=== PATIENT | male | born 1955 | race Caucasian/White ===

== ENCOUNTER 2022-10-16 09:29 | Outpatient (OUT) | payer MEDICARE, SELFPAY ==
--- NOTE | 2022-10-16 09:30 | CA_ITS ---
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1955 Requested By: RODNEY FONTAINE Order Number: [id number] Reading MD: RODNEY FONTAINE Interpretive Statements Monophasic doppler waveforms PVR waveforms with delayed upstroke, blunted amplitude and loss of dicrotic notch Right: - significant pressure gradient between the brachial and thigh cuff - abnormal JENELLE Left: - signficant pressure gradient between the brachial and thigh cuff - significant pressure gradient between the calf and DP cuff - abnormal JENELLE Impression: - 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
[2022-10-16 11:00] LABS: Basophils Absolute Auto 0.1 10^3/uL (0.0-0.1); Basophils Percent Auto 0.8 % (0.2-2.0); Eosinophils Absolute Auto 0.1 10^3/uL (0.0-0.7); Hematocrit 44.7 % (42.0-54.0); Hemoglobin 15.4 g/dL (14.0-18.0); Immature Granulocytes Abs Auto 0.03 10^3/uL (0.00-0.03); Immature Granulocytes Pct Auto 0.5 % (0.0-0.5); Lymphocytes Absolute Auto 1.3 10^3/uL (1.2-3.8); Lymphocytes Percent Auto 21.4 % (20.5-60.0); Mean Corpuscular HGB Conc 34.5 g/dL (29.9-35.2); Mean Corpuscular Volume 90.1 fL (80.0-94.0); Mean Platelet Volume 9.1 fL (9.5-13.5); Monocytes Absolute Auto 0.6 10^3/uL (0.3-0.8); Monocytes Percent Auto 9.8 % (1.7-12.0); Neutrophils Absolute Auto 4.2 10^3/uL (1.4-6.5); Neutrophils Percent Auto 66.5 % (43.0-75.0); Platelet Count 264 10^3/uL (150-450); Red Blood Count 4.96 10^6/uL (4.70-6.10); Red Cell Distribution Width 12.7 % (11.0-15.0); White Blood Count 6.3 10^3/uL (4.0-11.0)
[2022-10-16 11:44] LABS: Prostate Specific Antigen Scrn 2.24 ng/mL (<=4.00)
[2022-10-16 11:59] LABS: Alanine Aminotransferase 32 U/L (16-63); Anion Gap 12.2; Calcium 9.5 mg/dL (8.5-10.1); Carbon Dioxide 26.6 mmol/L (21.0-32.0); Chloride 100 mmol/L (98-107); Chol HDL Ratio 1.9; Cholesterol 126 mg/dL (<=200); Estimated GFR (African America >60 (>=60); Estimated GFR (Non-African Ame >60 (>=60); Glucose 99 mg/dL (74-106); HDL Cholesterol 66 mg/dL (40-60); Potassium 4.8 mmol/L (3.5-5.1); Sodium 134 mmol/L (136-145); Triglycerides 102 mg/dL (<=150); VLDL CHOLESTEROL 20.4 mg/dL
== END 2022-10-16 09:30 | disposition home or self-care (01) ==
LOC: CARD 09:29
PROVIDERS: Family Provider Internal Medicine; PCP Internal Medicine; Visit Provider Internal Medicine
DX: Z00.00 Encounter for general adult medical examination without abnormal findings (principal); I70.212 Atherosclerosis of native arteries of extremities with intermittent claudication, left leg; I10 Essential (primary) hypertension; E78.00 Pure hypercholesterolemia, unspecified; Z12.5 Encounter for screening for malignant neoplasm of prostate; Z79.899 Other long term (current) drug therapy
CPT/HCPCS: 36415; 80048; 80061; 84460; 85025; 93923; G0103

== ENCOUNTER 2023-12-07 08:45 | Outpatient (OUT) | payer MEDICARE, SELFPAY ==
[2023-12-07 08:55] LABS: Basophils Percent Auto 0.6 % (0.2-2.0); Eosinophils Absolute Auto 0.1 10^3/uL (0.0-0.7); Hematocrit 43.2 % (42.0-54.0); Hemoglobin 14.3 g/dL (14.0-18.0); Immature Granulocytes Abs Auto 0.02 10^3/uL (0.00-0.03); Immature Granulocytes Pct Auto 0.3 % (0.0-0.5); Lymphocytes Absolute Auto 1.5 10^3/uL (1.2-3.8); Lymphocytes Percent Auto 21.8 % (20.5-60.0); Mean Corpuscular HGB Conc 33.1 g/dL (29.9-35.2); Mean Corpuscular Hemoglobin 29.9 pg (25.9-34.0); Mean Corpuscular Volume 90.4 fL (80.0-94.0); Monocytes Absolute Auto 0.7 10^3/uL (0.3-0.8); Monocytes Percent Auto 10.4 % (1.7-12.0); Neutrophils Absolute Auto 4.3 10^3/uL (1.4-6.5); Neutrophils Percent Auto 64.9 % (43.0-75.0); Platelet Count 285 10^3/uL (150-450); Red Blood Count 4.78 10^6/uL (4.70-6.10); Red Cell Distribution Width 12.6 % (11.0-15.0); White Blood Count 6.6 10^3/uL (4.0-11.0)
[2023-12-07 09:38] LABS: Alanine Aminotransferase 37 U/L (16-63); Albumin Globulin Ratio 1.2; Albumin Level 3.8 g/dL (3.4-5.0); Alkaline Phosphatase 82 U/L (46-116); Anion Gap 10.7; Aspartate Amino Transferase 26 U/L (15-37); Bilirubin Total 1.7 mg/dL (0.2-1.0); Calcium 9.5 mg/dL (8.5-10.1); Carbon Dioxide 27.5 mmol/L (21.0-32.0); Chloride 102 mmol/L (98-107); Chol HDL Ratio 1.6; Cholesterol 124 mg/dL (<=200); Estimated GFR (African America >60 (>=60); Estimated GFR (Non-African Ame >60 (>=60); Globulin 3.1 g/dL; Glucose 101 mg/dL (74-106); HDL Cholesterol 77 mg/dL (40-60); Potassium 4.2 mmol/L (3.5-5.1); Sodium 136 mmol/L (136-145); Total Protein 6.9 g/dL (6.4-8.2); Triglycerides 101 mg/dL (<=150); VLDL CHOLESTEROL 20.2 mg/dL
[2023-12-07 09:54] LABS: Prostate Specific Antigen Scrn 3.01 ng/mL (<=4.00)
== END 2023-12-07 08:46 | disposition home or self-care (01) ==
LOC: LAB 08:45
PROVIDERS: Family Provider Internal Medicine; PCP Internal Medicine; Visit Provider Internal Medicine
DX: E78.00 Pure hypercholesterolemia, unspecified (principal); I10 Essential (primary) hypertension; I73.9 Peripheral vascular disease, unspecified; Z12.5 Encounter for screening for malignant neoplasm of prostate
CPT/HCPCS: 36415; 80053; 80061; 85025; G0103

== ENCOUNTER 2024-12-20 08:43 | Outpatient (OUT) | payer MEDICARE, SELFPAY ==
--- OUTSIDE RECORDS SUMMARY | 2024-12-20 09:03 | XMS_ITS | CCD ---
Author Organization [facility] CliniSyvt Care Team Providers Care Convertible Sofa Bedspring Tester Name Role Phone DR MARK ENRIQUEZ Admitting Unavailable MINA, DR STEVENS Attending Unavailable MINA, DR STEVENS Consulting Unavailable Mark Enriquez Unavailable Temi Vazquez Unavailable ERLIN Vazquez Attending Provider DO Mark Enriquez Primary Care Provider [phone] Dusty Black Unavailable Sridevi Cochran Unavailable Mark Enriquez DO Primary Care Provider [phone] Mark Enriquez DO Attending Provider Julius Cullen MD Attending Provider Julius Cullen MD Other Provider [phone] Julius Cullen Admitting Unavailable Julius Cullen Attending Unavailable Mark Enriquez Primary Care Unavailable Mark Enriquez Primary Care Unavailable Temi Vazquez Admitting Unavailable Temi Vazquez Attending Unavailable Medications Current Medications Medication Drug Class(es) Dates Sig (Normalized) Sig (Original) aspirin 81 mg delayed release oral tablet (11 sources) Platelet Aggregation Inhibitor, Nonsteroidal Anti-inflammatory Drug Start: 08-31-2023 take 1 tablet by mouth once daily Aspirin 81 mg tablet,delayed release (/EC) Active 1 TAB PO Daily August 31, 2023 12:00am FreeTextSi tablet Orally Once a day; Note: Source Status: Continue; Provider: Mina Reddy Complies with drug therapy take 1 tablet by tori th every twenty-four hours Aspirin 81 81 MG 1 tablet Orally Once a day Active take 1 tablet by mouth once shanti y Aspirin 81 81 MG 1 tablet Orally Once a day Active 24 hr buPROPion hydrochloride 150 mg extended release oral tablet (3 sources) Aminoketone Start: 01-15-2023 take 1 tablet by mouth every twenty-four hours buPROPion HCl ER (XL) 150 MG 1 tablet in the morning Orally Once a day for 30 days Jan, Active cephalexin 500 mg oral tablet (3 sources) Cephalosporin Antibacterial Start: 01-15-2023 take 1 tablet by mouth every eight hours Cephalexin 500 MG 1 tablet Orally Three times a day for 7 days Jan, Active clopidogrel 75 mg oral tablet (13 sources) P2Y12 Platelet Inhibitor Start: 03-01-2024 take 1 tablet by mouth once daily Clopidogrel 75 mg tablet Active 0 .ROUTE .COMPLEX March 01, 2024 2:12pm Take 1 tablet by mouth once daily Complies with drug therapy Start: 08-31-2023 End: 03-01-2024 take 1 tablet by mouth once daily Clopidogrel 75 mg tablet Discontinued 1 TAB PO Daily August 31, 2023 12:00am March 01, 2024 2:12pm FreeTextSi tablet Orally Once a day; Note: Source Status: Refill; Refills: 3; Qty: 90 Tablet; Provider: Mina Reddy take 1 tablet by tori th every twenty-four hours Clopidogrel Bisulfate 75 MG 1 tablet Orally Once a day for 90 days Active lisinopril 20 mg oral tablet (20 sources) Angiotensin Converting Enzyme Inhibitor Start: 10-02-2024 take 1 tablet by mouth once daily Lisinopril 20 mg tablet Active 20 MG PO Daily October 02, 2024 1:59pm Complies with drug therapy Start: 09-22-2023 End: 10-02-2024 take 1 tablet by mouth once daily Lisinopril 20 mg tablet Discontinued 0 .ROUTE .COMPLEX September 22, 2023 9:11am October 02, 2024 2:00pm Take 1 tablet by mouth once daily for 90 days Start: 08-31-2023 End: 09-22-2023 take 1 tablet by mouth once daily Lisinopril 20 mg tablet Discontinued 1 TAB PO Daily August 31, 2023 12:00am September 22, 2023 9:12am FreeTextSi tablet Orally Once a day; Note: Source Status: Continue; Provider: Mina Reddy take 1 tablet by tori th every twenty-four hours Lisinopril 20 MG 1 tablet Orally Once a day Active mupirocin 0.02 mg/mg topical ointment (3 sources) RNA Synthetase Inhibitor Antibacterial Start: 01-15-2023 Mupirocin 2 % 1 application Externally Twice a day for 5 days Jan, Active Completed/Discontinued Medications Medication Drug Class(es) Dates Sig (Normalized) Sig (Original) atorvastatin 20 mg oral tablet (20 sources) HMG-CoA Reductase Inhibitor Start: 08-31-2023 End: 10-23-2024 take 1 tablet by mouth once daily Atorvastatin 20 mg tablet Discontinued 20 MG PO Daily 90 90 October 02, 2024 1:59pm October 23, 2024 8:28am take 1 tablet by tori th every twenty-four hours Atorvastatin Calcium 20 MG 1 tablet Oral ly Once a day Active Sod Picosulf-Mag Ox-Citric A c (4 sources) Start: 10-24-2024 End: 10-24-2024 Sod Picosulf-Mag Ox-Citric A c (Clenpiq) 10 mg-3.5 gram- 12 gram/175 mL solution Discontinued 175 ML PO .COMPLEX 350 October 24, 2024 7:58am October 24, 2024 12:12pm Follow instructions given by office Start: 10-12-2024 End: 10-24-2024 Sod Picosulf-Mag Ox-Citric A c (Clenpiq) 10 mg-3.5 gram- 12 gram/175 mL solution Discontinued 175 ML PO .COMPLEX 350 October 12, 2024 12:00am October 24, 2024 7:58am Follow instructions given by office Problems Problem Classification Problem Date Documented Date Episodic/Chronic Aortic and peripheral arterial embolism or thrombosis (3 sources) Iliac artery occlusion; 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 Disorders of lipid metabolism (20 sources) Pure hypercholesterolemia; Translations: [Pure hypercholesterolemia, unspecified] Chronic Essential hypertension (20 sources) Essential hypertension; Translations: [Essential (primary) hypertension] Chronic Genitourinary symptoms and ill-defined conditions (16 sources) Nocturia; Translations: [Nocturia] Episodic Hyperplasia of prostate (20 sources) Nocturia due to benign prostatic hypertrophy; Translations: [Benign prostatic hyperplasia with lower urinary tract symptoms] Chronic Other aftercare (1 source) Other residential (current) drug therapy Episodic Other screening for suspected conditions (not mental disorders or infectious disease) (9 sources) Encounter for screening for malignant neoplasm of prostate; Translations: [Patient encounter status] Onset: 02-16-2022 Episodic Comment on above: PSA: 1.47 - 10/2020, 2.33 - 02/2022, 2.24 - 10/2022, 3.01 - 11/2023 Other skin disorders (1 source) Ingrowing nail Episodic Otitis media and related conditions (2 sources) Dysfunction of eustachian tube; Translations: [Unspecified Eustachian tube disorder, unspecified ear] Episodic Peripheral and visceral atherosclerosis (20 sources) Atherosclerosis of [place] arteries of extremities with intermittent claudication, left leg; Translations: [Intermittent claudication of bilateral lower limbs co-occurrent and due to atherosclerosis] Onset: 03-28-2024 Chronic Comment on above: CTA: occluded left c ommon femoral artery w/ collateral flow, 70% stenosis right common femoral arteryABI: right 0.75, left 0.88 - BI: right 1.34, left 1.0 - 03/2024 Screening and history of mental health and substance abuse codes (2 sources) Ex-smoker; Translations: [Personal history of nicotine dependence] 08-31-2023 Episodic Skin and subcutaneous tissue infections (1 source) Cellulitis of left toe Episodic Substance-related disorders (20 sources) Nicotine dependence; Translations: [Nicotine dependence, cigarettes, uncomplicated] Chronic Comment on above: Age started 20, 1ppd , age quit 67 Unclassified (4 sources) Patient encounter status; Translations: [Z12.11 - Encounter for screening for malignant neoplasm of colon] Unclassified (1 source) H69.90 - Unspecified Eustachian tube disorder, unspecified ear Results Test Name Value Interpretation Reference Range Facil ity US ankle/arm indiceson 03-29 US ankle/arm indices [facility] [address] [place] [address] Ultrasound Report Signed Patient: Ozzy Laguna MR#: [id number] 58 : 1955 Acct:[id number] Age/Sex: 68 / M ADM Date: 03/28/24 Loc: [facility] Room: Type: [facility] Attending Dr: Temi Vazquez SHIPPING/RECEIVING MANAGER-C Ordering Provider: Temi Vazquez APRN Date of Service: 03/28/24 US/US ankle/arm indices: I73.9 - Peripheral vascular disease, unspecified Copies to: Temi Vazquez APRN LOWER EXTREMITY SEGMENTAL ARTERIAL DOPSCAN (PVR) INDICATION: PVD PROCEDURE: Right arm blood pressure is 117 , left is 106 . Pressures of the right leg are 157 at the ankle using the posterior tibial artery and 154 at the ankle using the dorsalis pedis artery with ankle-brachial index of 1.32 1.34 . Pressures of the left leg are 90 at the ankle using the posterior tibial artery and 117 at the ankle using the dorsalis pedis artery with ankle-brachial index of 1.00 0.77 . Wave forms by plethysmography are biphasic in the right lower extremity. US/US ankle/arm indices IMPRESSION: Mild to moderate PERIPHERAL ARTERIAL DISEASE OF THE RIGHT LOWER EXTREMITY AT REST. THE PATIENT IS MOST LIKELY TO HAVE MULTI LEVEL DISEASE OF THE RIGHT LOWER EXTREMITY. Impression dictated by: Juan Dupont MD03/29/2024 4:56 PM Dictation Location: [facility]- Tech: Mikaela Lorenzo Transcribed By: YADI 03/29/241655 Dictated By: Juan Dupont MD 03/29/241654 Signed By: 03/29/241655 Normal [facility] Creatinine (Bld) [Mass/Vol]O rdered By: Temi Vazquez on 11-17-2022 Creatinine [Mass/Vol] 0.9 mg/dL 0.6-1.3 [facility] Comment on above: ER/ESD physician is notified/shown all ISTAT results.Critical values may be confirmed by laboratory testing ifdeemed necessary by ER attending doctor. CBC AUTO DIFFon 02-11-2022 BASO # 0.0 103/ul Normal 0.0-0.1 [facility] Comment on above: Performed By: #### C BC #### [facility] [address] [address] [address] Nirmala Weldon Basophils/100 WBC (Bld) 0.5 % Normal 0.2-2.0 [facility] Comment on above: Performed By: #### C BC #### [facility] [address] [address] [address] Nirmala Weldon EO # 0.1 103/ul Normal 0.0-0.[address] [facility] Comment on above: Performed By: #### C BC #### [facility] [address] [place] [address] Dr. Nirmala Weldon Eosinophils/100 WBC (Bld) 1.4 % Normal 0.9-7.[address] [facility] Comment on above: Performed By: #### C BC #### [facility] [address] [place] [address] Dr. Nirmala Weldon Erythrocyte distribution width (RBC) [Ratio] 12.6 % Normal 11.0-15.0 [facility] Comment on above: Performed By: #### C BC #### [facility] [address] [place] [address] Dr. Nirmala Weldon Hematocrit (Bld) [Volume fraction] 47.8 % Normal 42.0-54.0 [facility] Comment on above: Performed By: #### C BC #### [facility] [address] [place] [address] Dr. Nirmala Weldon Hemoglobin (Bld) [Mass/Vol] 16.4 g/dL Normal 14.0-18.0 [facility] Comment on above: Performed By: #### C BC #### [facility] [address] [place] [address] Dr. Nirmala Weldon IG # 0.05 10e3/ul Critically high 0.00-0.03 [facility] Comment on above: Performed By: #### C BC #### [facility] [address] [place] [address] Dr. Nirmala Weldon IG % 0.6 % Critically high 0.0-0.5 [facility] Comment on above: Performed By: #### C BC #### [facility] [address] [place] [address] Dr. Nirmala Weldon LYMPH # 1.7 103/ul Normal 1.2-3.[address] [facility] Comment on above: Performed By: #### C BC #### [facility] [address] [place] [address] Dr. Nirmala Weldon Lymphocytes/100 WBC (Bld) 20.8 % Normal 20.5-60.[address] [facility] Comment on above: Performed By: #### C BC #### [facility] [address] [place] [address] Dr. Nirmala Weldon MANUAL DIFF REQ NO Normal [facility] Comment on above: Performed By: #### C BC #### [facility] [address] [place] [address] Dr. Nirmala Weldon MCH (RBC) [Entitic mass] 30.5 pg Normal 25.9-34.[address] [facility] Comment on above: Performed By: #### C BC #### [facility] [address] [place] [address] Dr. Nirmala Weldon MCHC (RBC) [Mass/Vol] 34.3 g/dL Normal 29.9-35.[address] [facility] Comment on above: Performed By: #### C BC #### [facility] [address] [place] [address] Dr. Nimrala Weldon MCV (RBC) [Entitic vol] 88.8 fL Normal 80.0-94.[address] [facility] Comment on above: Performed By: #### C BC #### [facility] [address] [place] [address] Dr. Nirmala Weldon MONO # 0.7 103/ul Normal 0.3-0.[address] [facility] Comment on above: Performed By: #### C BC #### [facility] [address] [place] [address] Dr. Nirmala Weldon Monocytes/100 WBC (Bld) 8.9 % Normal 1.7-12.[address] [facility] Comment on above: Performed By: #### C BC #### [facility] [address] [place] [address] Dr. Nirmala Weldon NEUT # 5.6 103/ul Normal 1.4-6.[address] [facility] Comment on above: Performed By: #### C BC #### [facility] [address] [place] [address] Dr. Nirmala Weldon Neutrophils/100 WBC (Bld) 67.8 % Normal 43.0-75.[address] [facility] Comment on above: Performed By: #### C BC #### [facility] [address] [place] [address] Dr. Nirmala Weldon Platelet mean volume (Bld) [Entitic vol] 8.9 fL Critically low 9.5-13.[address] [facility] Comment on above: Performed By: #### C BC #### [facility] [address] [place] [address] Dr. Nirmala Weldon PLT 255 103/ul Normal 150-[address] [facility] Comment on above: Performed By: #### C BC #### [facility] [address] [place] [address] Dr. Nirmala Weldon RBC 5.38 106/ul Normal 4.70-6.[address] [facility] Comment on above: Performed By: #### C BC #### [facility] [address] [place] [address] Dr. Nirmala Weldon WBC 8.3 103/ul Normal 4.0-11.[address] [facility] Comment on above: Performed By: #### C BC #### [facility] [address] [place] [address] Dr. Nirmala Weldon LIPID PROFILEon 02-11-2022 CHOL-HDL RATIO NORM SEE BELOW Normal [facility] Comment on above: Result Comment: 3.3 - 4.4 LOW RISK 4.4 - 7.1 AVERAGE RISK 7.1 - 11.0 MODERATE RISK >11.0 HIGH RISK Performed By: #### L IPID, CMP #### [facility] [address] [place] [address] Dr. Nirmala Weldon Cholesterol [Mass/Vol] 133 mg/dL Normal <=[address] [facility] Comment on above: Performed By: #### L IPID, CMP #### [facility] [address] [place] [address] Dr. Nirmala Weldon Cholesterol in HDL [Mass/Vol] 68 mg/dL Critically high 40-[address] [facility] Comment on above: Performed By: #### L IPID, CMP #### [facility] [address] [address] [address] Nirmala Weldon Cholesterol in LDL [Mass/Vol] 45.8 mg/dL Normal [facility] Comment on above: Performed By: #### L IPID, CMP #### [facility] [address] [address] [address] Nirmala Weldon Cholesterol.total/ Cholesterol in HDL [Mass ratio] 2.0 {ratio} Normal [facility] Comment on above: Performed By: #### L IPID, CMP #### [facility] [address] [address] [address] Nirmala Weldon HDL NORMAL > or = 60 mg/dl - LO W CARDIOVASCULAR RISK <40 mg/dl - HIGH CARDIOVASCULAR RISK Normal [facility] Comment on above: Performed By: #### L IPID, CMP #### [facility] [address] [address] [address] Nirmala Weldon LDL CALC NORMAL SEE BELOW Normal [facility] Comment on above: Result Comment: <100 mg/dl OPTIMAL 100 - 129 mg/dl NEAR OR ABOVE OPTIMAL 130 - 159 mg/dl BORDERLINE HIGH 160 - 189 mg/dl HIGH >190 mg/dl VERY HIGH Performed By: #### L IPID, CMP #### [facility] [address] [address] [address] Nirmala Weldon Triglyceride [Mass/Vol] 96 mg/dL Normal <=150 [facility] Comment on above: Performed By: #### L IPID, CMP #### [facility] [address] [address] [address] Nirmala Weldon VLDL CALC 19.2 mg/dL Normal [facility] Comment on above: Performed By: #### L IPID, CMP #### [facility] [address] [address] [address] Nirmala Weldon PROF 14(COMP METB)on 022 Albumin [Mass/Vol] 4.0 g/dL Normal 3.4-5.0 [facility] Comment on above: Performed By: #### L IPID, CMP #### [facility] [address] [address] [address] Nirmala Weldon Albumin/Globulin [Mass ratio] 1.2 {ratio} Normal [facility] Comment on above: Performed By: #### L IPID, CMP #### [facility] [address] [address] [address] Nirmala Weldon ALP [Catalytic activity/Vol] 95 U/L Normal 46-116 [facility] Comment on above: Performed By: #### L IPID, CMP #### [facility] [address] [address] [address] Nirmala Weldon ALT [Catalytic activity/Vol] 29 U/L Normal 16-63 [facility] Comment on above: Performed By: #### L IPID, CMP #### [facility] [address] [address] [address] Nirmala Weldon Anion gap [Moles/Vol] 10.8 mmol/L Normal [facility] Comment on above: Performed By: #### L IPID, CMP #### [facility] [address] [address] [address] Nirmala Weldon AST [Catalytic activity/Vol] 18 U/L Normal 15-37 [facility] Comment on above: Performed By: #### L IPID, CMP #### [facility] [address] [address] [address] Nirmala Weldon Bilirubin [Mass/Vol] 1.4 mg/dL Critically high 0.2-1.0 [facility] Comment on above: Performed By: #### L IPID, CMP #### [facility] [address] [address] [address] Nirmala Weldon Calcium [Mass/Vol] 9.5 mg/dL Normal 8.5-10.1 [facility] Comment on above: Performed By: #### L IPID, CMP #### [facility] [address] [address] [address] Nirmala Weldon Chloride [Moles/Vol] 99 mmol/L Normal 98-107 [facility] Comment on above: Performed By: #### L IPID, CMP #### [facility] [address] [address] [address] Nirmala Weldon CO2 [Moles/Vol] 27.8 mmol/L Normal 21.0-32.0 [facility] Comment on above: Performed By: #### L IPID, CMP #### [facility] [address] [address] [address] Nirmala Weldon Creatinine [Mass/Vol] 0.99 mg/dL Normal 0.70-1.[address] [facility] Comment on above: Performed By: #### L IPID, CMP #### [facility] [address] [address] [address] Nirmala Weldon EGFR-AF PRYDEINIG >60 Normal >=60 [facility] Comment on above: Performed By: #### L IPID, CMP #### [facility] [address] [address] [address] Nirmala Weldon EGFR-NON AF PRYDEINIG >60 Normal >=[address] [facility] Comment on above: Performed By: #### L IPID, CMP #### [facility] [address] [address] [address] Nirmala Weldon Globulin (S) [Mass/Vol] 3.3 g/dL Normal [facility] Comment on above: Performed By: #### L IPID, CMP #### [facility] [address] [address] [address] Nirmala Weldon Glucose [Mass/Vol] 103 mg/dL Normal 74-106 [facility] Comment on above: Performed By: #### L IPID, CMP #### [facility] [address] [address] [address] Nirmala Weldon Potassium [Moles/Vol] 4.6 mmol/L Normal 3.5-5.[address] [facility] Comment on above: Performed By: #### L IPID, CMP #### [facility] [address] [address] [address] Nirmala Weldon Protein [Mass/Vol] 7.3 g/dL Normal 6.4-8.2 [facility] Comment on above: Performed By: #### L IPID, CMP #### [facility] [address] [address] [address] Nirmala Weldon Sodium [Moles/Vol] 133 mmol/L Critically low 136-[address] [facility] Comment on above: Performed By: #### L IPID, CMP #### [facility] [address] [address] [address] Nirmala Weldon Urea nitrogen [Mass/Vol] 9.0 mg/dL Normal 7.0-18.0 [facility] Comment on above: Performed By: #### L IPID, CMP #### [facility] [address] [address] [address] Nirmala Weldon Urea nitrogen/Creatinin e [Mass ratio] 9.1 mg/mg Normal [facility] Comment on above: Performed By: #### L IPID, CMP #### [facility] [address] [address] [address] Nirmala Weldon Vital Signs Date Time Vital Sign Value Performing Clinician Facility 11-06-2024 08:50-0400 Diastolic blood pressure 54 mm[Hg] Mark Ball DO Work Phone: [facility] 11-06-2024 08:50-0400 Heart rate 65 /min Mark Ball DO Work Phone: [facility] 11-06-2024 08:50-0400 Respiratory rate 16 /min Mark Ball DO Work Phone: [facility] 11-06-2024 08:50-0400 SaO2% (BldA) [Mass fraction] 98 % Mark Ball DO Work Phone: [facility] 11-06-2024 08:50-0400 Systolic blood pressure 90 mm[Hg] Mark Ball DO Work Phone: [facility] 11-06-2024 07:42-0400 Body height 170.18 cm Mark Ball DO Work Phone: [facility] 11-06-2024 07:42-0400 Body weight 74.84 kg Mark Ball DO Work Phone: [facility] 10-02-2024 13:36-0400 Body height 170.18 cm Mark Ball DO Work Phone: [facility] 10-02-2024 13:36-0400 Body mass index (BMI) [Ratio] 26.2 kg/m2 Mark Ball DO Work Phone: [facility] 10-02-2024 13:36-0400 Body weight 75.74 kg Mark Ball DO Work Phone: [facility] 10-02-2024 13:36-0400 Diastolic blood pressure 70 mm[Hg] Mark Ball DO Work Phone: [facility] 10-02-2024 13:36-0400 Heart rate 64 /min Mark Ball DO Work Phone: [facility] 10-02-2024 13:36-0400 Respiratory rate 12 /min Mark Ball DO Work Phone: [facility] 10-02-2024 13:36-0400 Systolic blood pressure 126 mm[Hg] Mark Ball DO Work Phone: [facility] 08-31-2023 13:36-0400 Body height 170.18 cm [facility] 08-31-2023 13:36-0400 Body mass index (BMI) [Ratio] 25.5 kg/m2 [facility] 08-31-2023 13:36-0400 Body temperature 97.6 [degF] [facility] 08-31-2023 13:36-0400 Body weight 73.93 kg [facility] 08-31-2023 13:36-0400 Diastolic blood pressure 62 mm[Hg] [facility] 08-31-2023 13:36-0400 Heart rate 71 /min [facility] 08-31-2023 13:36-0400 Respiratory rate 16 /min [facility] 08-31-2023 13:36-0400 SaO2% (BldA) [Mass fraction] 95 % [facility] 08-31-2023 13:36-0400 Systolic blood pressure 106 mm[Hg] [facility] 03-30-2023 13:30-0500 Body height 170.18 cm Mark Ball Other [facility] Other 03-30-2023 13:30-0500 Body mass index (BMI) [Ratio] 25.68 kg/m2 Mark Ball Other [facility] Other 03-30-2023 13:30-0500 Body weight 74.39 kg Mark Ball Other [facility] Other 03-30-2023 13:30-0500 Diastolic blood pressure 77 mm[Hg] Mark Ball Other [facility] Other 03-30-2023 13:30-0500 Respiratory rate 12 /min Mark Ball Other [facility] Other 03-30-2023 13:30-0500 Systolic blood pressure 127 mm[Hg] Mark Ball Other [facility] Other 01-15-2023 11:15-0400 Body height 170.18 cm Sridevi Cochran Other [facility] Other 01-15-2023 11:15-0400 Body mass index (BMI) [Ratio] 24.43 kg/m2 Sridevi Cochran Other [facility] Other 01-15-2023 11:15-0400 Body weight 70.76 kg Sridevi Cochran Other [facility] Other 01-15-2023 11:15-0400 Diastolic blood pressure 80 mm[Hg] Sridevi Cochran Other [facility] Other 01-15-2023 11:15-0400 SaO2% (BldA) [Mass fraction] 98 % Sridevi Cochran Other [facility] Other 01-15-2023 11:15-0400 Systolic blood pressure 136 mm[Hg] Sridevi Cochran Other [facility] Other 11-24-2022 12:15-0400 Body height 170.18 cm Dusty Bryantrer Other [facility] Other 11-24-2022 12:15-0400 Body mass index (BMI) [Ratio] 24.27 kg/m2 Dusty Mcdonaldehrer Other [facility] Other 11-24-2022 12:15-0400 Body temperature 97.6 [degF] Dusty Bryantrer Other [facility] Other 11-24-2022 12:15-0400 Body weight 70.31 kg Dusty Tamaraehrer Other [facility] Other 11-24-2022 12:15-0400 Diastolic blood pressure 62 mm[Hg] Dusty Mcdonaldehrer Other [facility] Other 11-24-2022 12:15-0400 SaO2% (BldA) [Mass fraction] 96 % Dusty Buehrer Other [facility] Other 11-24-2022 12:15-0400 Systolic blood pressure 110 mm[Hg] Dusty Buehrer Other [facility] Other 11-04-2022 08:30-0400 Body height 170.18 cm Temi Vazquez Other [facility] Other 11-04-2022 08:30-0400 Body mass index (BMI) [Ratio] 24.27 kg/m2 Temi Vazquez Other [facility] Other 11-04-2022 08:30-0400 Body temperature 97.8 [degF] Temi Vazquez Other [facility] Other 11-04-2022 08:30-0400 Body weight 70.31 kg Temi Vazquez Other [facility] Other 11-04-2022 08:30-0400 Diastolic blood pressure 78 mm[Hg] Temi Vazquez Other [facility] Other 11-04-2022 08:30-0400 SaO2% (BldA) [Mass fraction] 97 % Temi Vazquez Other [facility] Other 11-04-2022 08:30-0400 Systolic blood pressure 116 mm[Hg] Temi Vazquez Other [facility] Other 09-28-2022 13:30-0400 Body height 170.18 cm Mark Ball Other [facility] Other 09-28-2022 13:30-0400 Body mass index (BMI) [Ratio] 24.31 kg/m2 Mark Ball Other [facility] Other 09-28-2022 13:30-0400 Body weight 70.4 kg Mark Ball Other [facility] Other 09-28-2022 13:30-0400 Diastolic blood pressure 69 mm[Hg] Mark Ball Other [facility] Other 09-28-2022 13:30-0400 Respiratory rate 12 /min Mark Enriquez Other [facility] Other 09-28-2022 13:30-0400 Systolic blood pressure 130 mm[Hg] Mark Enriquez Other [facility] Other Encounters Encounter Date Encounter Type Care Provider Facility Start: 11-08-2024 ambulatory Mark Enriquez DO Work Phone: [facility] Work Phone: Start: 11-08-2024 Non-patient / Non-visit Mark Burkett mercy [facility] Work Phone: Start: 11-06-2024 End: 11-06-2024 ambulatory Julius Cullen Facility:[facility] Start: 11-06-2024 Non-patient / Non-visit Julius Martinez MD -[facility] Work Phone: Start: 10-02-2024 End: 10-02-2024 Patient encounter procedure Mark Enriquez DO -[facility] Work Phone: Start: 03-28-2024 End: 03-28-2024 ambulatory Mark Enriquez Facility:[facility] Start: 08-31-2023 End: 08-31-2023 ambulatory [facility] Work Phone: Start: 08-31-2023 End: 08-31-2023 Patient encounter procedure [facility] Work Phone: Start: 03-30-2023 End: 03-30-2023 ambulatory Mark Enriquez Other [facility] Other Start: 03-30-2023 Office outpatient vi sit 25 minutes Mark Enriquez [facility] Start: 03-02-2023 End: 03-02-2023 ambulatory Dusty Black Other [facility] Other Start: 03-02-2023 Office outpatient vi sit 25 minutes Dusty Black [facility] V[facility] Surgery Start: 01-15-2023 End: 01-15-2023 ambulatory Mark Enriquez Other [facility] Other Start: 01-15-2023 Office outpatient vi sit 15 minutes Sridevi Cochran [facility] Start: 01-15-2023 Telephone encounter Mark Enriquez [facility] Start: 11-24-2022 End: 11-24-2022 ambulatory Dusty Black Other [facility] Other Start: 11-24-2022 Office outpatient vi sit 25 minutes Dusty Black [facility] Vascular Surgery Start: 11-17-2022 End: 11-17-2022 ambulatory DO Mark Enriquez Work Phone: [facility] Work Phone: Start: 11-17-2022 End: 11-17-2022 Patient encounter procedure DO Mark Enriquez Work Phone: [facility] [place] Work Phone: Start: 11-05-2022 End: 11-05-2022 ambulatory Temi Vazquez Other [facility] Other Start: 11-05-2022 Telephone encounter Temi Lloyd [employer] Start: 11-04-2022 End: 11-04-2022 ambulatory Temi Vazquez Other [facility] Other Start: 11-04-2022 [facility] visit new patient Temi treadwell [facility] V[facility] Surgery Start: 10-17-2022 End: 10-17-2022 ambulatory Mark Enriquez Other [facility] Other Start: 10-17-2022 Encounter by yaritza steinberg Mark Enriquez [facility] Start: 10-16-2022 End: 10-16-2022 ambulatory Mark Enriquez Other [facility] Other Start: 10-16-2022 Telephone encounter Mark CHRISTENSEN [facility] Start: 10-01-2022 End: 10-01-2022 ambulatory Mark Enriquez Other [facility] Other Start: 10-01-2022 Encounter by yaritza r idris Enriquez [facility] Start: 09-28-2022 End: 09-28-2022 ambulatory Mark Enriquez Other [facility] Other Start: 09-28-2022 Initial preventive exam Mark madrid [facility] Start: 09-28-2022 Patient encounter procedure Mark Enriquez [facility] Start: 09-28-2022 Telephone encounter Mark Enriquez [facility] Start: 02-16-2022 Encounter for genera l adult medical examination without abnormal findings DR MARK ENRIQUEZ [facility] Start: 02-11-2022 End: 02-12-[address] MARK ENRIQUEZ Facility:[facility] Start: 02-11-2022 End: 02-12-2022 Encounter for general adult medical examination without abnormal findings DR MARK ENRIQUEZ Facility:[facility] Start: 09-15-2021 Adult health examination Temi Vazquez Other [facility] Other Procedures Date Procedure Procedure Detail Performing Clinician Start: 11-17-2022 CT of abdominal aort a with contrast DO Mark Enriquez Work Phone: Start: 02-11-[address] SADIE ENRIQUEZ Comment on above: Performed By: #### P [facility] #### [facility] [address] [place] [address] Dr. Nirmala Weldon Depression screening Temi Vazquez Other Plan of Treatment Date Care Activity Detail Author Start: 11-08-[address] [facility] Work Phone: Start: 11-06-2024 [facility] Start: 10-02-2024 Patient referral [facility] Work Phone: Comprehensive metabo lic 2000 panel - Serum or Plasma [facility] Patient Education High-fiber t [facility] Diverticulosis Discharge Instructions [facility] Hemorrhoids Discharge Instructions Know your Meds [facility] Work Phone: Patient referral [facility] Work Phone: [facility] Immunizations Immunization Date Immunization Notes Care Provider Usman anderson 03-20-2024 influenza, high dose seasonal, preservative-free Mark Ball DO Work Phone: [facility] 03-30-2023 influenza, high dose seasonal, preservative-free Mark Ball Other [facility] Other 03-30-2023 Prevnar 20 Mark Ball Other [facility] 03-30-2023 influenza virus vaccine, unspecified formulation [facility] 07-12-2020 COVID-19 Vaccine Pfi zer - Documentation Purposes Only Mark Ball Other [facility] 06-21-2020 COVID-19 Vaccine Pfi zer - Documentation Purposes Only Mark Ball Other [facility] 03-13-2020 Seasonal, quadrivale nt, recombinant, injectable influenza vaccine, preservative free Mark Ball Other [facility] 02-28-2019 Influenza, injectabl e, Madin Liliana Canine Kidney, quadrivalent with preservative Mark Ball Other [facility] Other 02-28-2019 Influenza, injectabl e, Madin [place] Canine Kidney, preservative free, quadrivalent [facility] 02-25-2018 influenza, injectabl e, quadrivalent, preservative free Mark Ball Other [facility] Payers Date Payer Category Payer Self-pay [id number] 2023 [facility] [id number] 1955 Unknown [id number] Unknown [id number] Unknown [id number] Unknown [id number] Social History Date Type Detail Facility Sex Assigned At [facility] Other Start: 1955 Sex Assigned At Male F [facility] Start: 08-31-2023 End: 11-06-2024 Tobacco smoking status NHIS Ex-smoker (finding) [facility] Sex Male (finding) [facility] Clinical Notes 09-28-2022 to 11-08-2024 Note Date & Type Note Facility 11-08-2024 Hospital Discharg e instructions Ambulatory OrdersReferral to ENT Time Frame: 11/08/24, Location: None Selected [facility] Work Phone: 10-02-2024 Evaluation note Diagnosis Onset Date Resolution Cigarette nicotine dependence in remission acute September 1:30pm Encounter for screening for malignant neoplasm of prostate acute October 02, 2024 1:30pm Hypercholesterolemia acute October 02, 2024 1:30pm Hypertension acute October 02, 025 1:30pm PAD (peripheral artery disease) acute October 02, 2024 1:30pm Medicare annual wellness visit, initial noneactive October 02, 2024 1:30pm Screening for colon cancer noneactiv e October 02, 2024 1:30pm [facility] Work Phone: [phone] 975-303312-19-2023 Evaluation note* Encounter Date Diagnosis Assessment Notes Treatment Notes Treatment Clinical Notes Mar, Pure hypercholestero lemia (ICD-10 - E78.00) Instructed on diet and exercise with continued statin therapy.Discussed the beneficial effects of lowering cholesterol in reducing the risk for cerebrovascular and cardiovascular disease. Mar, Primary hypertension (ICD-10 - I10) This patient is instructed to consume a healthy, low-fat, low-salt diet. They are also encouraged to continue exercise to achieve/maintain a normal BMI. Mar, Atherosclerosis of n ative artery of left lower extremity with intermittent claudication (ICD-10 - I70.212) Inspect feet daily for cuts. Walk daily until develop pain, rest and restart. Continue primary prevention measures: ASA, Plavix, Statin therapy. Continue abstinence from tobacco products Notify office w/ any change in symptoms or appearance of feet Mar, Benign prostatic hyperplasia with lower urinary tract symptoms (ICD-10 - N40.1) Symptoms tolerable Yearly ALCON and PSA Mar, Nocturia (ICD-10 - R35.1) Mar, Cigarette nicotine dependence in remission (ICD-10 - F17.211) Age began 20 1ppd, quit 2022 Continue abstinence. d/c Wellbutrin and call if desire to restart. They are aware of the hazards associated with tobacco use, including but not limited to respiratory infections, vascular disease and cancers. 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 He has a left external iliac artery occlusion with good-quality extensive collateralization between the internal iliac artery and the profunda femoris. He does not have ischemic rest pain or ulceration at this time although he did have a subungual infection by his history. For now we will continue to follow him. The fact that he has quit smoking is quite favorable for his overall prognosis. I will see him back in 6 months and we will repeat his ABIs on that day. He is aware that should he deteriorate in any way he could come back sooner and I be happy to see him. Particularly I emphasized to him that if he gets a sore on his foot we should see him immediately. [facility] Other 10-06-2023 Evaluation note* Encounter Date Diagnosis Assessment Notes Treatment Notes Treatment Clinical Notes Jan, Cigarette nicotine dependence without complication (ICD-10 - F17.210) [facility] Other 10-06-2023 Evaluation note* Encounter Date Diagnosis Assessment Notes Treatment Notes Treatment Clinical Notes Jan, Cellulitis of toe of left foot (ICD-10 - L03.032) Take medication as directed. Complete full course of antibiotic, even if symptoms are no longer present. Advised patient to keep area clean and dry. Clean feet with warm soapy water. Soak feet in warm water twice a day for 15 minutes each time. After soaking, dry feet well and apply a thin layer of Mupuricin. Cover area with bandage if potential exposure to dirty environment. May use OTC ibuprofen/tylenol as needed for pain. Do not cut toenails too short and avoid wearing shoes that are too tight. Patient encouraged to follow up with podiatry for recurrent ingrown toenails, the area does not clear up with antibiotics. . Patient should follow up sooner if affected area becomes increasingly painful, swollen, warm, or red, or if pt begins experiencing fevers, red streaking from infected skin, or pus drainage from the area. Pt verbalized understanding and agreement with treatment plan. Jan, Onychocryptosis (ICD-10 - L60.0) [facility] Other 08-15-2023 Evaluation note* Encounter Date Diagnosis Assessment Notes Treatment Notes Treatment Clinical Notes Nov, Peripheral artery disease (ICD-10 - I73.9) Nov, Claudication (ICD-10 - I73.9) Nov, Other Peripheral leonel rial occlusive disease with vasculogenic claudication At this juncture I discussed medical treatment with the patient. He is aware that he needs to discontinue smoking completely. We talked about continuing his walking program and how to increase his distances. While his lesion is amenable to endovascular intervention most likely he does not have an immediate indication for reconstruction. We will plan to keep a close eye on him and see him back in 3 months for follow-up. He is aware that should he deteriorate in any way come sooner. He will remain on aspirin Plavix and atorvastatin. If he wishes additional medical help in discontinuing smoking he will follow-up with Dr. Enriquez. [facility] Other 07-26-2023 Evaluation note* Encounter Date Diagnosis Assessment Notes Treatment Notes Treatment Clinical Notes Oct, PAD (peripheral artery disease) (ICD-10 - I73.9) We reviewed patient noninvasive arterial studies from the [facility] which indicate severe PAD on the left, and moderate PAD on the right. He has symptoms of short distance claudication which are lifestyle limiting for him. He is on maximal medical management with use of aspirin, Plavix, and statin medication daily. He currently has no tissue loss or ischemic rest pain. Discussed recommendation for CTA of the abdomen with runoff to evaluate extent of arterial disease of bilateral lower extremities. We will have him back after the CT to discuss those findings as well as any treatment recommendations based on those studies. He verbalizes understanding of all discussion, agrees with this plan, and denies any questions. [facility] Other 06-19-2023 Evaluation note* Encounter Date Diagnosis Assessment Notes Treatment Notes Treatment Clinical Notes Sep, Pure hypercholestero lemia (ICD-10 - E78.00) Instructed on diet and exercise with continued statin therapy.Discussed the beneficial effects of lowering cholesterol in reducing the risk for cerebrovascular and cardiovascular disease. Sep, Medicare annual well ness visit, initial (ICD-10 - Z00.00) Personalized health advice was given to the beneficiary including a written plan for screenings discussed and provided. Advanced care planning reviewed and/or information given as requested. Additional counseling was provided here today in regards to, [ ]. The above visit was performed by [ ], under direct supervision of [ ]. Document reviewed and amended by provider signed below. Healthy diet and exercise. Reviewed age-appropriate preventive testing recommended. Sep, Primary hypertension (ICD-10 - I10) This patient is instructed to consume a healthy, low-fat, low-salt diet. They are also encouraged to continue exercise to achieve/maintain a normal BMI. Sep, Cigarette nicotine dependence without complication (ICD-10 - F17.210) This patient has been encouraged to quit tobacco use immediately. They are aware of the hazards associated with tobacco use, including but not limited to respiratory infections, vascular disease and cancers. Discussed LDCT recommended yearly Sep, Benign prostatic hyperplasia with lower urinary tract symptoms (ICD-10 - N40.1) Symptoms tolerable Sep, Nocturia (ICD-10 - R35.1) Sep, Screening PSA (prost ate specific antigen) (ICD-10 - Z12.5) Yearly ALCON and PSA Sep, Atherosclerosis of n ative artery of left lower extremity with intermittent claudication (ICD-10 - I70.212) Inspect feet for cuts. ASA and Statin therapy Walk daily Check Segmental Pressure Sep, High risk medication use (ICD-10 - Z79.899) [facility] Other 06-19-2023 Evaluation note* Encounter Date Diagnosis Assessment Notes Treatment Notes Treatment Clinical Notes Sep, Primary hypertension (ICD-10 - I10) [facility] Other Evaluation noteNo InformationNort [employer] Other evaluation noteNo assessment information available [facility] Work Phone: Evalufyyvs note* Diagnosis Onset Date Resolution Status Claudication acute Former smoker acute PAD (peripheral artery disease) acute [facility] Work Phone: [facility] general Narrative - Reported* Type Description Date Medical History Benign prostatic hyp erplasia with lower urinary tract symptoms Medical History Pure hypercholesterolemia Medical History Cigarette nicotine dependence, u ncomplicated Medical History Essential hypertension Surgical History Tonsillectomy Surgical History Nasal septum repair Surgical History Colonoscopy 2014 Surgical History Inguinal hernia repair 2008 Hospitalization History see surgical history [facility] Other [facility] Narrative - ReportedNo[employer] Other [facility] Narrative - Reported* Type Description Date Medical History Benign prostatic hyp erplasia with lower urinary tract symptoms Medical History Pure hypercholesterolemia Medical History Cigarette nicotine dependence, u ncomplicated Medical History Essential hypertension Medical History [ ] Surgical History Tonsillectomy Surgical History Nasal septum repair Surgical History Colonoscopy 2014 Surgical History Inguinal hernia repair 2008 Surgical History [ ] Hospitalization History see surgical history [facility] Other Hospital Discharge instructions Additional Instructions DISCHARGE INSTRUCTIONS FOR COLONOSCOPY WHAT TO EXPECT: - You may feel full, gassy or cramping after your procedure. In some cases, this may be from a few hours to a day. Walking may help relieve the discomfort. - If you have polyp(s) removed you may note some minor bloody discharge after your first bowel movements. - You should begin to recover from anesthesia within 1 hour of the procedure, however may feel groggy for the next 24 hours. DO's AND DON'Ts: - Call your doctor right away if you have a hard abdomen, severe pain, are passing lots of bright red blood or clots. - Call your doctor if you develop any rashes, hives or difficulty breathing. - Let your doctor know if you have not had a bowel movement by 3 days after your procedure. - If you take 81 mg aspirin for your heart it is safe to resume this medication. - If you take other blood thinner medications your doctor will instruct you when these can safely be resumed. - Do NOT drive for 24 hours. - Do NOT operate machinery such as power tools, lawn mowers, snow blowers, sewing machines, etc. for 24 hours. - Avoid alcoholic beverages and drugs for allergies, nerves, or sleep. - Do NOT stay alone. Do NOT leave your child unattended. - Do NOT make important personal or business decisions or sign any legal documents. - Eat solid foods and drink liquids in smaller amounts than usual until normal appetite returns. If you should experience an upset stomach, liquids high in sugar content (soda, Mahesh-Aid, non-acid juices) are recommended. - You can resume normal activities tomorrow. FOLLOW UP & RECOMMENDATIONS: - You should have a repeat colonoscopy in 10 years. - You can restart your Plavix tomorrow. - Notify the doctor if you have any problems. - Follow-up with the GI office as needed. - Follow up with PCP. - Office number [phone].[facility] Work Phone: Summary Purpose Family History No Family History Records Found Relationship Condition Age at Onset Recorded Date/T tuan brother Diabetes mellitus Unknown Not Specified Heart disease Unknown Relationship Condition Age at Onset Recorded Date/T tuan brother Diabetes mellitus Unknown mother Heart disease Unknown Advance Directives No Advanced Directives Records Found Advance Directive Response Recorded Date/ Time Advance Directives No November 13 023 12:04pm Chief Complaint and Reason for Visit Chief Complaint severe pad Chief Complaint 6MO F/U;JENELLE'S BOTH L EGS 1P Chief Complaint 6MO F/U;JENELLE'S BOTH L EGS 1P Reason for Visit Claudication Former smoker PAD (peripheral artery disease) Chief Complaint Admit Date Wellness October 02, 2024 1:30 pm Screening November 06, 2024 7:20 am Reason for Visit Admit Date Cigarette nicotine dependence in remissi on October 02, 2024 1:30pm Encounter for screening for malignant ne oplasm of prostate October 02, 2024 1:30pm Hypercholesterolemia October 02, 2024 1:3 0pm Hypertension October 02, 2024 1:30 pm PAD (peripheral artery disease) September 1:30pm Medicare annual wellness visit, initial October 02, 2024 1:30pm Screening for colon cancer October 02 1:30pm Chief Complaint Admit Date Wellness October 02, 2024 1:30 pm Screening November 06, 2024 7:20 am Referral Order November 08, 2024 8:44 pm Additional Source Comments (unrecognized sect ion and content) No Status Records FoundNo Status Records Found INFORMATION SOURCE (unrecogn ized section and content) DATE CREATED AUTHOR 02/26/2022 [facility] DATE CREATED AUTHOR AUTHOR'S ORGANIZ ATION 11/18/2024 [facility] REASON FOR VISIT (unrecogniz ed section and content) WELLNESSRefillRefillUpdate D emographics - Personal InfoUpdate Demographics - Personal InfoUpdate Demographics - Personal InfoURGENT REF BY DR. ENRIQUEZ SEVERE HEMODYNAMIC COMPROMISE OF THE LLEVascuclar Notereview CT results with Dr Black - [facility] at [facility] 2pm 11/17, Follow-up CT angiogramQuestionsplit on left toe3 MONTH FOLLOW UP; PAD, Follow-up peripheral vascular disease6 month Follow up Care Teams (unrecognized sec tion and content) Team Status: Active Member Role Status Dates Mark Enriquez DO Primary Care Provider Active Team Status: Inactive Member Role Status Dates JIM WebsterC Attending Provider Active Mark Enriquez DO Primary Care Provider Active Team Status: Inactive Member Role Status Dates Mark Enriquez DO Primary Care Provider Active Start: August 31, 2023 End: August 31, 2023 Dusty Black MD Attending Provider Active S tart: August 31, 2023 End: August 31, 2023 Team Status: Inactive Member Role Status Dates Mark Mina DO Primary Care Provider Active Start: October 02, 2024 End: October 02, 2024 Mark Mina DO Attending Provider Active Sta rt: October 02, 2024 End: October 02, 2024 Team Status: Active Member Role Status Dates Mark Enriquez DO Primary Care Provider Active Start: November 06, 2024 Julius Cullen MD Attending Provider Active S tart: November 06, 2024 Julius Cullen MD Other Provider Active Start : November 06, 2024 Team Status: Active Member Role Status Dates Mark Mina DO Primary Care Provider Active Start: November 08, 2024 Mark Enriquez DO Attending Provider Active Sta rt: November 08, 2024 Goals (unrecognized section and content) Goals may be documented in a n alternate section FOR RECORDS PERTAINING TO PATIENTS WHO ARE OR HAVE BEEN ENROLLED IN A CHEMICAL DEPENDENCY/SUBSTANCEABUSE PROGRAM, SOME INFORMATION MAY BE OMITTED. This clinical summary was aggregated from multiple sources. Caution should be exercised in using it in the provision of clinical care. This summary normalizes information from multiple sources, and as a consequence, information in this document may materially change the coding, format and clinical context of patient data. In addition, data may be omitted in some cases. CLINICAL DECISIONS SHOULD BE BASED ON THE PRIMARY CLINICAL RECORDS. [employer] provides no warranty or guarantee of the accuracy or completeness of information in this document.
[2024-12-20 09:22] LABS: Hematocrit 41.3 % (42.0-54.0); Hemoglobin 13.9 g/dL (14.0-18.0); Immature Granulocytes Abs Auto 0.02 10^3/uL (0.00-0.03); Immature Granulocytes Pct Auto 0.4 % (0.0-0.5); Lymphocytes Absolute Auto 1.0 10^3/uL (1.2-3.8); Mean Corpuscular HGB Conc 33.7 g/dL (29.9-35.2); Mean Corpuscular Hemoglobin 29.5 pg (25.9-34.0); Mean Corpuscular Volume 87.7 fL (80.0-94.0); Platelet Count 266 10^3/uL (150-450); Red Blood Count 4.71 10^6/uL (4.70-6.10); White Blood Count 5.1 10^3/uL (4.0-11.0)
[2024-12-20 09:40] LABS: Alanine Aminotransferase 38 U/L (16-63); Albumin Globulin Ratio 1.1; Albumin Level 3.5 g/dL (3.4-5.0); Alkaline Phosphatase 80 U/L (46-116); Anion Gap 10.3; Aspartate Amino Transferase 20 U/L (15-37); Blood Urea Nitrogen 7.0 mg/dL (7.0-18.0); Calcium 9.2 mg/dL (8.5-10.1); Carbon Dioxide 29.3 mmol/L (21.0-32.0); Chloride 104 mmol/L (98-107); Cholesterol 112 mg/dL (<=200); Estimated GFR (African America >60 (>=60 mL/min/1.73m^2); Estimated GFR (Non-African Ame >60 (>=60 mL/min/1.73m^2); Globulin 3.2 g/dL; Glucose 98 mg/dL (74-106); HDL Cholesterol 70 mg/dL (40-60); Potassium 4.6 mmol/L (3.5-5.1); Sodium 139 mmol/L (136-145); Total Protein 6.7 g/dL (6.4-8.2); Triglycerides 75 mg/dL (<=150); VLDL CHOLESTEROL 15.0 mg/dL
== END 2024-12-20 08:44 | disposition home or self-care (01) ==
LOC: LAB 08:43
PROVIDERS: Family Provider Internal Medicine; Visit Provider Internal Medicine
DX: E78.00 Pure hypercholesterolemia, unspecified (principal); I10 Essential (primary) hypertension; Z12.5 Encounter for screening for malignant neoplasm of prostate
CPT/HCPCS: 36415; 80053; 80061; 85025; G0103

== ENCOUNTER 2025-02-20 14:16 | Outpatient (OUT) | payer MEDICARE, SELFPAY ==
--- OUTSIDE RECORDS SUMMARY | 2025-02-20 14:20 | XMS_ITS | Clinical Summary ---
Author Organization [facility] Address [id number] [place] [address] Care Team Providers Care Rigging Worker Name Role Phone Unavailable Primary Care Provider Unavailabl e Allergies No known active allergies Medications MedicationSigDispense QuantityRefillsLast FilledStart DateEnd DateStatus aspirin 81 mg Indications:myocardial infarction preventionTake 81 mg by mouth daily Indications: MYOCARDIAL INFARCTION PREVENTION.10/20/2016Active nystatin (MYCOSTATIN) powder Indications:Candidiasis of skinApply 1 application topically 2 (two) times a day as needed (rash). 30 g Active lisinopriL (PRINIVIL,ZESTRIL) 20 mg tablet Indications:Essential hypertensionTake 1 tablet by mouth once daily 90 tablet 1Active Active Problems ProblemNoted DateDiagnosed FsdzEfpeby52/27/2020Candidiasis of skin10/26/2018 Screening for prostate ykoqjy8404/20/2018BMI 25.0-25.9,adult04/20/2018Annual physical exam04/14/2017Screening for malignant neoplasm of aszcystw68/03/2018 Hypertension Immunizations ImmunizationAdministration DatesNext DueInfluenza, Dzzsogarnxq87/19/2019 Family History Medical HistoryRelationNameCommentsHeart diseaseMotherHypertensionMotherRelation NameStatusCommentsFatherAliveMotherAlive Social History Tobacco UseTypesPacks/DayYears UsedDateSmoking Tobacco: Every DaySmokeless Tobacco: Never Tobacco Cessation:Ready to Q uit: No; Counseling Given: Yes Alcohol UseStandard Drinks/WeekCommentsNo0 (1 standard drink = 0.6 oz pure alcohol)PHQ-2AnswerDate RecordedTotal Hkqzj645ChildcareAnswerDate JgbductyYjidoimnxGernadk43/12/2019EmploymentAnswerDate RecordedEmploymentUnknown 09/21/2018Purpose - LifeAnswerDate RecordedPurpose and direction in lifeUnknown 1Sex and Gender InformationValueDate RecordedSex Assigned at BirthNot on fileLegal GkwLyav9211/15/2014 11:25 AM EDTGender IdentityNot on fileSexual OrientationNot on file Last Filed Vital Signs Vital SignReadingTime TakenCommentsBlood Taiuyyse308/7007 1:10 PM EDT Idzvn593910/26/2019 1:10 PM RYNJlbpufqhozh38.5 ??C (97.7 ??F)10/26/2019 1:10 PM EDTRespiratory Ckxx642610/26/2019 1:10 PM EDTOxygen Mxezjiuiah52%10/26/2019 1:10 PM EDTInhaled Oxygen Concentration--Ucjwzp23.1 kg (163 lb 6.4 oz)10/26/2019 1:10 PM ARUHuoujf425.7 cm (5' 8 )10/26/2019 1:10 PM EDTBody Mass Index24.8410/26/2019 1:10 PM EDT Plan of Treatment Health MaintenanceDue DateLast DoneCommentsDepression Ujegvfuil02/01/1970Tobacco Nbgmaftpn04/01/1970Adult BMI Bxqztsdqs28/01/1976DTaP,Tdap and Td Vaccines (1 - Tdap)1976Zoster (Shingles) Vaccine (1 of 2)2007Fall Risk Screening 2022Influenza Wujfbip84/, 02/25/2018, 02/10/2018 Ytptjijxfgp12, 02/20/2015RSV ( or age 60+ yrs) (1 - 1- dose 75+ series)2032 Medical Devices Not on file Procedures Procedure NamePriorityDate/TimeAssociated DiagnosisCommentsHM COLONOSCOPYRoutine 03/04/2015from Last 3 Months or Most Recently Relevant to Health Maintenance Results * COLONOSCOPY (03/04/2015)Specimen (Source)Anatomical Location / Laterality Collection Method / VolumeCollection TimeReceived Time03/04/2015 Narrative Authorizing ProviderResult TypeResult StatusScanning Provider ExternalHEALTH MAINTENANCEFinal ResultPerforming OrganizationAddressCity/State/ZIP CodePhone Number MANUALLY TRANSCRIBED LAB RESULTS from Last 3 Months or Most Recently Relevant to Health Maintenance Insurance [address] [place] [address]
--- OUTSIDE RECORDS SUMMARY | 2025-02-20 14:20 | XMS_ITS | Clinical Summary ---
Author Organization [facility] Address [address] [place] [address] Care Team Providers Care Correctional Medicine Physician Name Role Phone Mark Enriquez DO Primary Care Provider [phone] Allergies No known active allergies Medications MedicationSigDispense QuantityRefillsLast FilledStart DateEnd DateStatus atorvastatin (Lipitor) 20 MG tablet Take 20 mg by mouth DailyActive clopidogrel (Plavix) 75 MG tablet Take 75 mg by mouth DailyActive lisinopril 20 MG tablet Take 20 mg by mouth DailyActive aspirin 81 MG EC tablet Take 81 mg by mouth DailyActive Active Problems ProblemNoted DateDiagnosed RpniYewkhsmfzjpq86/20/2025igarette nicotine dependence in yqbtqfotz78/20/2025 Overview (01/29/2025): Age started 20, 1ppd, age quit 67 Eustachian tube mobhfxuvlce05/20/9410Zpeownmkwxdpdaeommcf43/20/2025Hypertension 01/29/2025PAD (peripheral artery disease)01/29/2025 Overview (01/29/2025): CTA: occluded left common femoral artery w/ collateral flow, 70% stenosis right common femoral artery JENELLE: right 0.75, left 0.88 - 08/2023 JENELLE: right 1.34, left 1.0 - 03/2024 Lawcpa8611/06/2019Candidiasis of skin10/26/2018BMI 25.0-25.9,adult04/20/2018Annual physical exam04/14/2017 Encounters DateTypeDepartmentCare PxlfDawmtuepoim36/21/2025 1:40 PM EDTOffice Visit [facility] [address] [facility] [address] [place] [id number] Stephanie Draper MD Asymmetric SNHL (sensorineural hearing loss) (Primary Dx); Right-sided tinnitus; Ear fullness, right01/30/2025amboo flowsheet [facility] [address] [facility] [address] [place] [phone] Stephanie Draper MD 01/30/20255524Njvznw05/20/2025 10:30 AM EDTClinical Support [facility] [address] [facility] [address] [place] [phone] Tracie Rodriguez CCC-A Asymmetrical sensorineural hearing loss (Primary Dx); Plugged feeling in ear, right01/29/2025amboo flowsheet [facility] [address] [facility] [address] [place] [phone] Tracie Rodriguez CCC-A from Last 3 Months Family History Medical HistoryRelationNameCommentsKidney diseaseMotherRelationNameStatus CommentsFatherAliveMotherDeceased Social History Tobacco UseTypesPacks/DayYears UsedDateSmoking Tobacco: FormerCigarettes Smokeless Tobacco: Never Tobacco Cessation:Counseling Given: Not Answered Sex and Gender InformationValueDate RecordedSex Assigned at BirthNot on file Legal XnzCkpw2906/24/2022 7:26 PM EDTGender IdentityNot on fileSexual Orientation Not on file Last Filed Vital Signs Vital SignReadingTime TakenCommentsBlood Wjiwdzrw052/6310 1:36 PM EDT Unzse342701/30/2025 1:36 PM EDTTemperature--Respiratory Rate--Oxygen Saturation-- Inhaled Oxygen Concentration--Weight--Jixbcz483.2 cm (5' 7 )01/30/2025 1:36 PM EDTBody Mass Index-- Plan of Treatment DateTypeDepartmentCare Team (Latest Contact Info)Agfdrykmkor52/09/2025 11:20 AM ESTOffice Visit [facility] [address] [facility] [address] [place] [address] Stephanie Draper MD [address] [place] [address] Health MaintenanceDue DateLast DoneCommentsCT Miiccspqpgob17/01/1958Colonoscopy 1957Colorectal Cancer Iywssacpo61/01/1958FIT-DNA1957FIT1957 FOBT1957 5986Zztjtnsmorhef33/01/1958COVID-19 Vaccine ( season) , 07/12/2020, 06/21/2020Influenza Vaccine (#1)2024 03/20/2024, 03/30/2023, 03/13/2020, Additional history existsPneumococcal Vaccine: 65+ QnhzoBexkktbeu59/19/2023 Procedures Procedure NamePriorityDate/TimeAssociated DiagnosisCommentsAUDITORY FUNCTION OKUDMXfbtryz99/20/2025 4:07 PM EDT from Last 3 Months Results * Auditory function tests (01/29/2025 4:07 PM EDT) Narrative Tracie Rodriguez [facility] - 01/29/2025 4:07 PM EDT Right Ear: Mild hearing loss at 250 Hz rising to normal hearing at 500 Hz. Moderate sensorineural hearing loss above 500 Hz. Left Ear: ?? Moderate sensorineural hearing loss at 8K Hz only Authorizing ProviderResult TypeResult StatusDeекатерина Rodriguez [facility] SERVICES ORDERABLESFinal Result from Last 3 Months Insurance * Guarantor: Ozzy LagunaAccount TypeRelation to PatientDate of BirthPhone Billing AddressPersonal/PeniwjZnkc21/01/1956 [facility] [address] [address] Care Teams Team MemberRelationshipSpecialtyStart DateEnd Date Mark Enriquez DO [address] [place] [address] PCP - GeneralInternal Kylnnuuw53/20/25
--- OUTSIDE RECORDS SUMMARY | 2025-02-20 14:22 | XMS_ITS | CCD ---
Author Organization [facility] Care Team Providers Care Diet Consultant Name Role Phone DR MARK ENRIQUEZ Admitting Unavailable MINA, DR FLORES Attending Unavailable MINA, DR FLORES Consulting Unavailable Mark Enriquez Unavailable Temi Vazquez Unavailable ERLIN Vazquez Attending Provider DO Mark Enriquez Primary Care Provider [phone] Dusty Black Unavailable Sridevi Cochran Unavailable [phone] Mark Enriquez DO Primary Care Provider Mark Enriquez DO Attending Provider Juilus Cullen MD Attending Provider Julius Cullen MD Other Provider Julius Cullen Admitting Unavailable Julius Cullen Attending Unavailable Mark Enriquez Primary Care Unavailable Mark Enriquez Primary Care Unavailable Temi Vazquez Admitting Unavailable Temi Vazquez Attending Unavailable Mark Enriquez DO Primary Care Provider STEPHANIE WAGONER Attending Unavailable TRACIE RODRIGUEZ Attending Unavailable Medications Current Medications MedicationDrug Class(es)DatesSig (Normalized)Sig (Original)aspirin 81 mg delayed release oral tablet (14 sources)Platelet Aggregation Inhibitor, Nonsteroidal Anti-inflammatory Drug Start: 53-23-1781nuwm 1 tablet by mouth once dailyAspirin 81 mg tablet,delayed release (DR/EC) Active 1 TAB PO Daily August 31, 2023 12:00am FreeTextSi tablet Orally Once a day; Note: Source Status: Continue; Provider: Mina Reddy Complies with drug therapytake 1 tablet by mouth once dailyAspirin 81 81 MG 1 tablet Orally Once a day Gdbjpo44 hr buPROPion hydrochloride 150 mg extended release oral tablet (3 sources)AminoketoneStart: 16-89-8295ptlm 1 tablet by mouth every twenty-four hoursbuPROPion HCl ER (XL) 150 MG 1 tablet in the morning Orally Once a day for 30 days Jan, Activecephalexin 500 mg oral tablet (3 sources)Cephalosporin AntibacterialStart: 00-53-6623hyka 1 tablet by mouth every eight hoursCephalexin 500 MG 1 tablet Orally Three times a day for 7 days Jan, Activeclopidogrel 75 mg oral tablet (16 sources)P2Y12 Platelet InhibitorStart: 48-57-2801uwrs 1 tablet by mouth once dailyClopidogrel 75 mg tablet Active 0 .ROUTE .COMPLEX March 01, 2024 2:12pm Take 1 tablet by mouth once daily Complies with drug therapyStart: 08-31-2023 End: 33-12-7997kbss 1 tablet by mouth once dailyClopidogrel 75 mg tablet Discontinued 1 TAB PO Daily August 31, 2023 12:00am March 01, 2024 2:12pm FreeTextSi tablet Orally Once a day; Note: Source Status: Refill; Refills: 3; Qty: 90 Tablet; Provider: Mina Flores Elisinopril 20 mg oral tablet (20 sources)Angiotensin Converting Enzyme InhibitorStart: 87-22-5053mvgh 1 tablet by mouth once dailyLisinopril 20 mg tablet Active 20 MG PO Daily October 02, 2024 1:59pm Complies with drug therapyStart: 09-22-2023 End: 93-64-5534oyef 1 tablet by mouth once dailyLisinopril 20 mg tablet Discontinued 0 .ROUTE .COMPLEX September 22, 2023 9:11am October 02, 2024 2:00pm Take 1 tablet by mouth once daily for 90 daysStart: 08-31-2023 End: 07-83-5807cqnm 1 tablet by mouth once dailyLisinopril 20 mg tablet Discontinued 1 TAB PO Daily August 31, 2023 12:00am September 22, 2023 9:12am Fr eeTextSi tablet Orally Once a day; Note: Source Status: Continue; Provider: Mina Flores Emupirocin 0.02 mg/mg topical ointment (3 sources)RNA Synthetase Inhibitor AntibacterialStart: 86-89-3841Xgmniytlz 2 % 1 application Externally Twice a day for 5 days Jan, Active Completed/Discontinued Medications MedicationDrug Class(es)DatesSig (Normalized)Sig (Original)atorvastatin 20 mg oral tablet (20 sources)HMG-CoA Reductase InhibitorStart: 08-31-2023 End: 85-15-0732lfgy 1 tablet by mouth once dailyAtorvastatin 20 mg tablet Discontinued 20 MG PO Daily 90 90 October 02, 2024 1:59pm October 23, 2024 8:28am Sod Picosulf-Mag Ox-Citric Ac (4 sources)Start: 10-24-2024 End: 46-67-4130Pic Picosulf-Mag Ox-Citric Ac (Clenpiq) 10 mg-3.5 gram- 12 gram/175 mL solution Discontinued 175 MLPO .COMPLEX 350 October 24, 2024 7:58am October 24, 2024 12:12pm Follow instructions given by officeStart: 10-12-2024 End: 14-16-9458Lmh Picosulf-Mag Ox-Citric Ac (Clenpiq) 10 mg-3.5 gram- 12 gram/175 mL solution Discontinued 175 MLPO .COMPLEX 350 October 12, 2024 12:00am October 24, 2024 7:58am Follow instructions given by office Problems Active Problems Problem ClassificationProblemDateDocumented DateEpisodic/ChronicAortic and peripheral arterial embolism or thrombosis (3 sources)Iliac artery occlusion; 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]ChronicDisorders of lipid metabolism (20 sources)Pure hypercholesterolemia; Translations: [Pure hypercholesterolemia, unspecified]Onset: 88-68-0011GupoghhOfmrxwlda hypertension (20 sources)Essential hypertension; Translations: [Essential (primary) hypertension]Onset: 10-01-8499YzrbdajXqfulhtstcxxc symptoms and ill-defined conditions (16 sources)Nocturia; Translations: [Nocturia]EpisodicHyperplasia of prostate (20 sources)Nocturia due to benign prostatic hypertrophy; Translations: [Benign prostatic hyperplasia with lower urinary tract symptoms]ChronicOther aftercare (1 source)Other group home (current) drug therapyEpisodicOther ear and sense organ disorders (3 sources)Asymmetrical sensorineural hearing loss; Translations: [Sensorineural hearing loss, bilateral]07-89-4914YmkpopfQsntu ear and sense organ disorders (1 source)Sensation of blocked right ear; Translations: [Other specified disorders of right ear]34-74-4662ZfmxfjsfIedit ear and sense organ disorders (2 sources)Tinnitus of right ear; Translations: [Tinnitus, right ear]01-30-2025 EpisodicOther ear and sense organ disorders (2 sources)Ear sensations - finding; Translations: [Other specified disorders of right ear]44-16-1108WfkiidrgDpqbx screening for suspected conditions (not mental disorders or infectious disease) (9 sources)Encounter for screening for malignant neoplasm of prostate; Translations: [Patient encounter status]Onset: 03-57-8245PbvfdnduBxsqohw on above:PSA: 1.47 - 10/2020, 2.33 - 02/2022, 2.24 - 10/2022, 3.01 - 11/2023Other skin disorders (1 source)Ingrowing nailEpisodicOtitis media and related conditions (6 sources)Dysfunction of eustachian tube; Translations: [Unspecified Eustachian tube disorder, unspecified ear]Onset: 76-22-5503JrxzewkgGulickhxps and visceral atherosclerosis (20 sources)Atherosclerosis of [place] arteries of extremities with intermittent claudication, left leg; Translations: [Intermittent claudication of bilateral lower limbs co-occurrent and due to atherosclerosis]Onset: 15-64-0838Awltctn Comment on above:CTA: occluded left common femoral artery w/ collateral flow, 70% stenosis right common femoral arteryABI: right 0.75, left 0.88 - BI: right 1.34, left 1.0 - 03/2024Screening and history of mental health and substance abuse codes (2 sources)Ex-smoker; Translations: [Personal history of nicotine dependence] 17-23-2576EhejbfsjJdre and subcutaneous tissue infections (1 source)Cellulitis of left toeEpisodicSubstance-related disorders (20 sources)Nicotine dependence; Translations: [Nicotine dependence, cigarettes, uncomplicated]Onset: 22-97-9794HsfrgblPpxycmo on above:Age started 20, 1ppd, age quit 67Unclassified (4 sources)Patient encounter status; Translations: [Z12.11 - Encounter for screening for malignant neoplasm ofcolon]Unclassified (1 source)H69.90 - Unspecified Eustachian tube disorder, unspecified ear Past or Other Problems Problem ClassificationProblemDateDocumented DateEpisodic/ChronicMycoses (4 sources)Candidiasis of skin; Translations: [Candidiasis of skin and nail] Onset: 576497-92-9731GiyitnijZafok nutritional; endocrine; and metabolic disorders (4 sources)Overweight in adulthood with body mass index of 25 or more but less than 30; Translations: [Body mass index (BMI) 25.0-25.9, adult]Onset: 04-20-2018 94-26-0416Eahxcfzv Results Test NameValueInterpretationReference RangeFacilityAuditory function testson 11-99-8725Mtabx Ear: Mild hearing loss at 250 Hz rising to normal hearing at 500 Hz. Moderate sensorineural hearing loss above 500 Hz. Left Ear: Moderate sensorineural hearing loss at 8K Hz only NOMS [facility] HospitalUS ankle/arm indiceson 23-37-8052ZF ankle/arm indicesGreene Memorial Hospital [facility] [address] [place] [address] Ultrasound Report Signed Patient: Ozzy Laguna MR#: [id number] 58 : 1955 Acct:[id number] Age/Sex: 68 / M ADM Date: 03/28/24 Loc: [facility] Room: Type: [facility] Attending Dr: Temi Vazquez WAITER/WAITRESS BAR-C Ordering Provider: Temi Vazquez APRN Date of [...] Juan Dupont MD03/29/2024 4:56 PM Dictation Location: [place] [address] Tech: Mikaela Lorenzo Transcribed By: [facility] 03/29/241655 Dictated By: Juan Dupont MD 03/29/241654 Signed By: 03/29/241655[facility] Physician GroupCreatinine (Bld) [Mass/Vol] Ordered By: Temi Vazquez on 70-82-7856Jkhneulbjj [Mass/Vol]0.9 mg/dL0.6-1.3 [facility] CenterComment on above:ER/ESD physician is notified/shown all ISTAT results.Critical values may be confirmed by laboratory testing ifdeemed necessary by ER attending doctor.CBC AUTO DIFFon 00-79-6968WMSO #0.0 103/ulNormal0.0-0.1[facility] Medical CenterComment on above:Performed By: #### CBC #### [facility] [address] [address] [address] Nirmala WeldonBasophils/100 WBC (Bld)0.5 %Normal0.2-2.0The [facility] Comment on above:Performed By: #### CBC #### [facility] [address] [address] [address] Nirmala Chin #0.1 103/ulNormal0.0-0.7The [facility] CenterComment on above: Performed By: #### CBC #### [facility] [address] [address] [address] Nirmala Grimaldoosinophils/100 WBC (Bld)1.4 %Normal0.9-7.0[facility] Comment on above:Performed By: #### CBC #### [facility] [address] [place] [address] Dr. Nirmala Grimaldorythrocyte distribution width (RBC) [Ratio]12.6 %Fajtvg71.0-15.0 The [facility] Hospitalment on above:Performed By: #### CBC #### [facility] [address] [place] [address] Dr. Nirmala WeldonHematocrit (Bld) [Volume fraction]47.8 %Yljvcd13.0-54.0The [facility] CenterComment on above:Performed By: #### CBC #### [facility] [address] [place] [address] Dr. Nirmala WeldonHemoglobin (Bld) [Mass/Vol]16.4 g/sWYokian15.0-18.0The [facility] Hospitalment on above:Performed By: #### CBC #### [facility] [address] [place] [address] Dr. Nirmala Baltazar #0.05 10e3/ulCritically high0.00-0.03The [facility] Comment on above:Performed By: #### CBC #### [facility] [address] [place] [address] Dr. Nirmala Baltazar %0.6 %Critically high0.0-0.5The [facility] Hospitalment on above:Performed By: #### CBC #### [facility] [address] [place] [address] Dr. Nirmala KaplanH #1.7 103/ulNormal1.2-3.8The [facility] CenterComment on above:Performed By: #### CBC #### [facility] [address] [place] [address] Dr. Nirmala Kaplanhocytes/100 WBC (Bld)20.8 %Vcgfff10.5-60.0The [facility] Hospitalment on above:Performed By: #### CBC #### [facility] [address] [place] [address] Dr. Nirmala HardingUAL DIFF REQNONormalThe [facility] CenterComment on above: Performed By: #### CBC #### [facility] [address] [address] [address] Nirmala Krueger (RBC) [Entitic mass]30.5 xxZpsufp49.9-34.0The [facility] CenterComment on above:Performed By: #### CBC #### [facility] [address] [place] [address] Dr. Nirmala Krueger (RBC) [Mass/Vol]34.3 g/nZWhmjnm21.9-35.2The [facility] HospitalComment on above:Performed By: #### CBC #### [facility] [address] [place] [address] Dr. Nirmala Krueger (RBC) [Entitic vol]88.8 rUOugnmq08.0-94.0The [facility] CenterComment on above:Performed By: #### CBC #### [facility] [address] [place] [address] Dr. Nirmala Perez #0.7 103/ulNormal0.3-0.8The [facility] CenterComment on above:Performed By: #### CBC #### [facility] [address] [place] [address] Dr. Nirmala Romeroocytes/100 WBC (Bld)8.9 %Normal1.7-12.0The [facility] Comment on above:Performed By: #### CBC #### [facility] [address] [place] [address] Dr. Nirmala Skelton #5.6 103/ulNormal1.4-6.5The [facility] CenterComment on above:Performed By: #### CBC #### [facility] [address] [place] [address] Dr. Nirmala Rodrigesutrophils/100 WBC (Bld)67.8 %Ocuyyb42.0-75.0The [facility] CenterComment on above:Performed By: #### CBC #### [facility] [address] [place] [address] Dr. Nirmala Maharajlet mean volume (Bld) [Entitic vol]8.9 fLCritically low 9.5-13.5The [facility] CenterComment on above:Performed By: #### CBC #### [facility] [address] [place] [address] Dr. Nirmala WeldonPLT255 103/gwRjnweq398-179Zcj [facility] CenterComment on above: Performed By: #### CBC #### [facility] [address] [address] [address] Nirmala WeldonRBC5.38 106/ulNormal4.70-6.10The [facility] CenterComment on above:Performed By: #### CBC #### [facility] [address] [place] [address] Dr. Nirmala WeldonWBC8.3 103/ulNormal4.0-11.0The [facility] CenterComment on above: Performed By: #### CBC #### [facility] [address] [place] [address] Dr. Nirmala LucasID PROFILEon 68-82-4522XFXV-HDL RATIO NORMSEE [facility] HospitalComment on above:Result Comment: 3.3 - 4.4 LOW RISK 4.4 - 7.1 AVERAGE RISK 7.1 - 11.0 MODERATE RISK >11.0 HIGH RISKPerformed By: #### LIPID, CMP #### [facility] [address] [place] [address] Dr. Nirmala WeldonCholesterol [Mass/Vol]133 mg/dLNormal<=200[facility] Comment on above:Performed By: #### LIPID, CMP #### [facility] [address] [place] [address] Dr. Nirmala Ballardesterol in HDL [Mass/Vol]68 mg/dLCritically gyoe74-61Peh [facility] CenterComment on above:Performed By: #### LIPID, CMP #### [facility] [address] [place] [address] Dr. Nirmala Ballardesterol in LDL [Mass/Vol]45.8 mg/dLSelect Medical Specialty Hospital - ColumbusComment on above:Performed By: #### LIPID, CMP #### [facility] [address] [address] [address] Nirmala WeldonCholesterol.total/Cholesterol in HDL [Mass ratio]2.0 {ratio} NormalThe [facility] CenterComment on above:Performed By: #### LIPID, CMP #### [facility] [address] [address] [address] Nirmala Kwon NORMAL> or = 60 mg/dl - LOW CARDIOVASCULAR RISK <40 mg/dl - HIGH CARDIOVASCULAR RISKSelect Medical Specialty Hospital - ColumbusComment on above:Performed By: #### LIPID, CMP #### [facility] [address] [place] [address] Dr. Nirmala WeldonLDL CALC NORMALSEE BELOWSelect Medical Specialty Hospital - ColumbusComment on above:Result Comment: <100 mg/dl OPTIMAL 100 - 129 mg/dl NEAR OR ABOVE OPTIMAL 130 - 159 mg/dl BORDERLINE HIGH 160 - 189 mg/dl HIGH >190 mg/dl VERY HIGH Performed By: #### LIPID, CMP #### [facility] [address] [place] [address] Dr. Nirmala WeldonTriglyceride [Mass/Vol]96 mg/dLNormal<=150[facility] Comment on above:Performed By: #### LIPID, CMP #### [facility] [address] [place] [address] Dr. Nirmala RowanLDL CALC19.2 mg/dLNoKettering Health Washington TownshipComment on above: Performed By: #### LIPID, CMP #### [facility] [address] [place] [address] Dr. Nirmala WeldonPROF 14(COMP METB)on 98-80-4920Aqgjors [Mass/Vol]4.0 g/dLNormal 3.4-5.0The [facility] CenterComment on above:Performed By: #### LIPID, CMP #### [facility] [address] [place] [address] Dr. Nirmala WeldonAlbumin/Globulin [Mass ratio]1.2 {ratio}NormalThe [facility] CenterComment on above:Performed By: #### LIPID, CMP #### [facility] [address] [address] [address] Nirmala VelezP [Catalytic activity/Vol]95 U/OOuanhk27-712Csh [facility] CenterComment on above:Performed By: #### LIPID, CMP #### [facility] [address] [address] [address] Nirmala VelezT [Catalytic activity/Vol]29 U/HLryyij91-84Ale [facility] CenterComment on above:Performed By: #### LIPID, CMP #### [facility] [address] [address] [address] Nirmala Foremanon gap [Moles/Vol]10.8 mmol/LNormalUniversity Hospitals A[facility] Center Comment on above:Performed By: #### LIPID, CMP #### [facility] [address] [address] [address] Nirmala WeldonAST [Catalytic activity/Vol]18 U/QJzxidm62-30Dke [facility] CenterComment on above:Performed By: #### LIPID, CMP #### [facility] [address] [address] [address] Nirmala WeldonBilirubin [Mass/Vol]1.4 mg/dLCritically high0.2-1.0The [facility] CenterComment on above:Performed By: #### LIPID, CMP #### [facility] [address] [address] [address] Nirmala WeldonCalcium [Mass/Vol]9.5 mg/dLNormal8.5-10.1[facility] Comment on above:Performed By: #### LIPID, CMP #### [facility] [address] [place] [address] Dr. Nirmala WeldonChloride [Moles/Vol]99 mmol/SPbeffe38-717Lna [facility] Comment on above:Performed By: #### LIPID, CMP #### [facility] [address] [address] [address] Nirmala WeldonCO2 [Moles/Vol]27.8 mmol/IFchlxe84.0-32.0The [facility] Comment on above:Performed By: #### LIPID, CMP #### [facility] [address] [address] [address] Nirmala WeldonCreatinine [Mass/Vol]0.99 mg/dLNormal0.70-1.30The [facility] CenterComment on above:Performed By: #### LIPID, CMP #### [facility] [address] [address] [address] Nirmala GrimaldoGFR-AF ROMANIAN>60Normal>=60The [facility] CenterComment on above:Performed By: #### LIPID, CMP #### [facility] [address] [address] [address] Nirmala GrimaldoGFR-NON AF ROMANIAN>60Normal>=60The [facility] CenterComment on above:Performed By: #### LIPID, CMP #### [facility] [address] [address] [address] Nirmala WeldonGlobulin (S) [Mass/Vol]3.3 g/dLNormalThe [facility] CenterComment on above:Performed By: #### LIPID, CMP #### [facility] [address] [address] [address] Nirmala WeldonGlucose [Mass/Vol]103 mg/nREtslzs62-087Spl [facility] Comment on above:Performed By: #### LIPID, CMP #### [facility] [address] [address] [address] Nirmala WeldonPotassium [Moles/Vol]4.6 mmol/LNormal3.5-5.1The [facility] Comment on above:Performed By: #### LIPID, CMP #### [facility] [address] [address] [address] Nirmala WeldonProtein [Mass/Vol]7.3 g/dLNormal6.4-8.2The [facility] Comment on above:Performed By: #### LIPID, CMP #### [facility] [address] [address] [address] Nirmala WeldonSodium [Moles/Vol]133 mmol/LCritically ocp943-916Les [facility] CenterComment on above:Performed By: #### LIPID, CMP #### [facility] [address] [place], [place] [address] Dr. Nirmala WeldonUrea nitrogen [Mass/Vol]9.0 mg/dLNormal7.0-18.0The [facility] CenterComment on above:Performed By: #### LIPID, CMP #### [facility] [address] [place], [place] [address] Dr. Nirmala WeldonUrea nitrogen/Creatinine [Mass ratio]9.1 mg/mgNormalThe [facility] CenterComment on above:Performed By: #### LIPID, CMP #### [facility] [address] [place], [place] [address] Dr. Nirmala Weldon Vital Signs Date TimeVital SignValuePerforming XhjzvmbxcBzbjscck39-88-0323 13:36-0400Body .2 cmStephanie Wagoner MD Work Phone: [facility] HospitalRjfiykqhcx48-01-3117 13:36-0400Diastolic blood bdmaajjb45 mm[Hg]Stephanie Wagoner MD Work Phone: [phone] HospitalKkxalozxqw53-34-0042 13:36-0400Heart rate69 /min Stephanie Wagoner MD Work Phone: [facility] HospitalDjwehkajes77-20-0713 13:36-0400Systolic blood yqhtnecz492 mm[Hg]Stephanie Wagoner MD Work Phone: [facility] HospitalGeufjidmvo93-71-8253 08:50-0400Diastolic blood epzafgkx94 mm[Hg]Mark Ball DO Work Phone: [phone]-[facility]07-28-2025 08:50-0400 Heart rate65 /minBenjamin Ball DO Work Phone: [phone] [place], [place] 6807207-28-2025 08:50-0400 Respiratory rate16 /minBenjamin Ball DO Work Phone: [phone] [place], [place] 6807207-28-2025 08:50-0400 SaO2% (BldA) [Mass fraction]98 %Mark Ball DO Work Phone: [phone]07-28-2025 08:50-0400 Systolic blood uzdezqqc49 mm[Hg]Mark Ball DO Work Phone: [phone] [place], [place] 5652207-28-2025 07:42-0400 Body ibhddq943.18 cmBenjamin Ball DO Work Phone: [phone] [place], [place] 5652207-28-2025 07:42-0400 Body .84 kgBenjamin Ball DO Work Phone: [phone] [place], [place] 5652206-23-2025 13:36-0400 Body .18 cmBenjamin Ball DO Work Phone: [phone] [place], [place] 5652206-23-2025 13:36-0400 Body mass index (BMI) [Ratio]26.2 kg/i5Xuvuefmh Ball DO Work Phone: [phone])[address] [place], [place] 5652206-23-2025 13:36-0400 Body dvnrog28.74 kgBenjamin Ball DO Work Phone: [phone] [place], [place] 5652206-23-2025 13:36-0400 Diastolic blood ucdvyxdu36 mm[Hg]Mark Ball DO Work Phone: [phone] [place], [place] 5652206-23-2025 13:36-0400 Heart rate64 /minBenjamin Ball DO Work Phone: [phone] [place], [place] 5652206-23-2025 13:36-0400 Respiratory rate12 /minBenjamin Ball DO Work Phone: [phone] [place], [place] 5652206-23-2025 13:36-0400 Systolic blood hnhpjxdo269 mm[Hg]Mark Ball DO Work Phone: [phone])[address] [place], [place] 5652205-21-2024 13:36-0400 Body wltwyk186.18 cmUniversity [facility]als [facility]05-21-2024 13:36-0400Body mass index (BMI) [Ratio]25.5 kg/n4ZqpqkhxuuUniversity Hospitals Beachwood Medical Center05-21-2024 13:36-0400Body ldpxdjebgon71.6 [degF][facility] [facility] 13:36-0400Body vxcayh39.93 kg[facility]05-[facility]2024 13:36-0400Diastolic blood egwdmsfd77 mm[Hg][facility] 08-31-2023 13:36-0400Heart rate71 /[facility] 08-31-2023 13:36-0400Respiratory rate16 /[facility] 08-31-2023 13:36-9298AyS9% (BldA) [Mass fraction]95 %[facility]05-21-2024 13:36-0400Systolic blood nmmzebrh017 mm[Hg][facility]12-19-2023 13:30-0500Body icnpzz676.18 cmBenjamin Ball Other [employer] Other 499208-02-0849 13:30-0500Body mass index (BMI) [Ratio] 25.68 kg/k3Jcodjiwa Ball Other [employer] Other 12-19-2023 13:30-0500Body hqiisp68.39 kgBenjamin Ball Other [employer] Other 12-19-2023 13:30-0500Diastolic blood rczyyrun41 mm[Hg] Mark Ball Other [employer] Other 12-19-2023 13:30-0500Respiratory rate12 /minBenjamin Ball Other [employer] Other 12-19-2023 13:30-0500Systolic blood ybflmhib200 mm[Hg] Mark Ball Other [employer] Other 10-06-2023 11:15-0400Body fjdlok999.18 cmJennifer Rohrbacher Other [employer] Other 10-06-2023 11:15-0400Body mass index (BMI) [Ratio] 24.43 kg/q7WciodldsSridevi Cochran Other [employer] Other 10-06-2023 11:15-0400Body hoenxe99.76 kgSridevi Cochran Other [employer] Other 10-06-2023 11:15-0400Diastolic blood hcganybi11 mm[Hg] Sridevi Sammie Other [employer] Other 10-06-2023 11:15-2966CsL1% (BldA) [Mass fraction]98 % Sridevi Hernandeznakul Other [employer] Other 10-06-2023 11:15-0400Systolic blood dsujwdit911 mm[Hg] Sridevi Sammie Other [employer] Other 08-15-2023 12:15-0400Body irtrjl698.18 cmDusty Black Other [employer] Other 08-15-2023 12:15-0400Body mass index (BMI) [Ratio] 24.27 kg/z7ThhhiauDusty Bryantrer Other [employer] Other 08-15-2023 12:15-0400Body merhwprneqc53.6 [degF] Dusty Black Other [employer] Other 08-15-2023 12:15-0400Body kmvaml39.31 kgDusty Bryantrer Other [place] [employer] Other 08-15-2023 12:15-0400Diastolic blood wkfambot17 mm[Hg] Dusty Sanzjerrica Other [place] [employer] Other 08-15-2023 12:15-2170AoT8% (BldA) [Mass fraction]96 % Dusty Black Other [place] [employer] Other 08-15-2023 12:15-0400Systolic blood rcglguxv088 mm[Hg] Dusty Bryantjanelle Other [employer] Other 07-26-2023 08:30-0400Body hmhzdi348.18 cmTemi Vazquez Other [place] [employer] Other 07-26-2023 08:30-0400Body mass index (BMI) [Ratio] 24.27 kg/g6IlbgiaTemi Vazquez Other [employer] Other 07-26-2023 08:30-0400Body jlwelrbyeyg65.8 [degF]Temi Vazquez Other [place] [employer] Other 07-26-2023 08:30-0400Body mnemyk41.31 kgTemi Vazquez Other [facility] Other 07-26-2023 08:30-0400Diastolic blood acmznomj96 mm[Hg] Temi Vazquez Other [employer] Other 07-26-2023 08:30-8033TgA6% (BldA) [Mass fraction]97 % Temi Vazquez Other [facility] [employer] Other 07-26-2023 08:30-0400Systolic blood njjnzgif008 mm[Hg] Temi Vazquez Other [facility] [employer] Other 06-19-2023 13:30-0400Body wqeexl290.18 cmBenjamin Ball Other [facility] [employer] Other 06-19-2023 13:30-0400Body mass index (BMI) [Ratio] 24.31 kg/s0Apqanhxl Ball Other [place] [employer] Other 06-19-2023 13:30-0400Body dytkzk80.4 kgBenjamin Ball Other [facility] [employer] Other 06-19-2023 13:30-0400Diastolic blood mm[Hg] Mark Ball Other [place] [employer] Other 06-19-2023 13:30-0400Respiratory rate12 /minBenjamin Ball Other [place] [employer] Other 06-19-2023 13:30-0400Systolic blood renxawcj003 mm[Hg] Mark Ball Other [place] [employer] Other Encounters Encounter DateEncounter TypeCare ProviderFacilityStart: 01-30-2025 End: 94-20-9380Kmrwtk Vladimir Wagoner MD Work Phone: [facility] OtolaryngologyStart: 01-30-2025 End: 48-04-5542Cnocyc Vladimir Wagoner MD Work Phone: [facility] OtolaryngologyStart: 01-30-2025 End: 80-12-7300Gzeuqr outpatient new 45 minutesStephanie Wagoner MD Work Phone: [facility] OtolaryngologyComment on above:Asymmetric SNHL (sensorineural hearing loss) (Primary Dx); Right-sided tinnitus; Ear fullness, rightStart: 01-30-2025 End: 43-00-6880whblprleqsMLDVQL H TIMMISNot AvailableStart: 01-29-2025 End: 04-15-2437Ojmayx flowsheetMaycost. clare hospitaljacobo Daniels Michael [facility] Work Phone: [facility] AudiologyStart: 01-29-2025 End: 59-51-0566Owzqtt flowsheetMaycost. clare hospitaljacobo Liill [facility] Work Phone: [facility] AudiologyStart: 37-09-9233Zrhosql encounter procedureDest. clare hospitaljacobo LiCarilion [facility] Work Phone: noms HealthcareStart: 01-29-2025 End: 75-20-5372Mfifccjh SupportDest. clare hospitaljacobo Rodriguez [facility] Work Phone: [facility] AudiologyComment on above:Asymmetrical sensorineural hearing loss (Primary Dx); Plugged feeling in ear, rightStart: 28-18-8295wavxturbfxGevyilbx Mina DO Work Phone: [facility] Work Phone: Start: 16-38-1324Opx-patient / Non-visitMark Enriquez DO-[facility] Work Phone: Start: 11-06-2024 End: 51-97-1066uuyxnhminqIyzunsw J DittyFacility:[place] Clinictart: 14-11-3819Ger-patient / Non-visitJulius Cullen MD-[facility] Work Phone: Start: 10-02-2024 End: 23-31-6745Rcqmbnu encounter procedureBejan Enriquez DO-[facility] Work Phone: Start: 03-28-2024 End: 18-93-8225slqdlqzwpsYsdlftxr BallFacility:[facility] Start: 08-31-2023 End: 46-31-0311hwnhxzzlqvEaokwlvnkTrinity Health [facility] Work Phone: Start: 08-31-2023 End: 21-10-2525Txjzsyd encounter [facility] Vascular Surgery Work Phone: Start: 03-30-2023 End: 88-61-8920ysehkomkqjZhucxkfu Ball Other [employer] Other Start: 13-58-2614Qbxwpz outpatient visit 25 minutes Mark Enriquez Medical ClinicStart: 03-02-2023 End: 96-08-4397mhflrtockbAesdzyk Buehrer Other [employer] Other Start: 53-30-2762Ckuepb outpatient visit 25 minutes Dusty Sears Vascular SurgeryStart: 01-15-2023 End: 61-52-5719sarzdcpvdyEjxqimoo Ball Other [employer] Other Start: 06-17-2817Cwtsje outpatient visit 15 minutes Sridevi Wilkerson [facility] ClinicStart: 42-88-6105Ifmbjniht encounter Mark Enriquez Medical ClinicStart: 11-24-2022 End: 64-17-0214pvwtsurdfvNjoccpu Buehrer Other [employer] Other Start: 94-18-0917Vozmtn outpatient visit 25 minutes Dusty Sears Vascular SurgeryStart: 11-17-2022 End: 13-31-8510rmccxvybjdFJ Mark Enriquez Work Phone: [facility] Work Phone: Start: 11-17-2022 End: 76-51-7960Ptgbmpr encounter procedureDO Mark Mina Work Phone: [facility] [place] Work Phone: Start: 11-05-2022 End: 86-00-9663lxpfneyoehOcbbyo Ruttino Other [employer] Other Start: 72-89-2375Prrugravu encounterDameonamalia EmilyoFJACQUES Referral CoordinatorStart: 11-04-2022 End: 13-10-6512ekiiuygfgpJanwoy Ruttino Other [employer] Other Start: 04-97-1755UHZR visit new patientTemi Vazquez [facility] V[facility] SurgeryStart: 10-17-2022 End: 89-25-9372fgdmzzcrpuIggithmo Ball Other [employer] Other Start: 59-56-8567Vicgethyp by computer linkBenjamin BallFPG [facility] Medical ClinicStart: 10-16-2022 End: 66-66-6368oehihwegwwNzhyscht Ball Other [employer] Other Start: 82-80-0349Otqadssmy encounterBenjamin BallFPG [facility] Medical ClinicStart: 10-01-2022 End: 61-73-6234kadfkcstegAkgebele Ball Other [employer] Other Start: 06-73-2171Scgluvknp by computer linkBenjamin BallFPG [facility] Medical ClinicStart: 09-28-2022 End: 89-91-9954qnrajypbvwAqexlgce Ball Other [employer] Other Start: 97-35-1028Arqdkxd preventive examBenjamin Ball [facility] ClinicStart: 31-86-8156Qzqpifl encounter procedureBenamber Enriquez Medical ClinicStart: 61-45-0614Cokrwkrpx encounterBenamber Enriquez Medical ClinicStart: 94-72-9057Ibsexxsvd for general adult medical examination without abnormal findingsDR MARK ENRIQUEZRiverside Methodist Hospitaltart: 02-11-2022 End: 41-79-9352tpqnnazpmdMH MARK ENRIQUEZFacility:Q4Icdxc: 02-11-2022 End: 87-77-9040Pxvheothb for general adult medical examination without abnormal findingsDR MARK ENRIQUEZFacility:Y7Ubuqz: 66-92-0113Hhynu health examination Temi Vazquez Other [place] [employer] Other Procedures DateProcedureProcedure DetailPerforming ClinicianStart: 22-39-9620VJNLQQJF FUNCTION TESTSTracie Rodriguez [facility] Work Phone: start: 76-15-2380MJ of abdominal aorta with contrastDO Mark Enriquez Work Phone: Start: 75-15-7673KYS screeningDR MARK ENRIQUEZComment on above:Performed By: #### PSASC #### [facility] [address] [place] [address] Dr. Nirmala Walkerpression screeningTemi Vazquez Other Plan of Treatment DateCare ActivityDetailAuthorStart: 01-30-2025 End: 12-44-6952Jeeabrv encounter procedureNOMS Fran OtolaryngologyComment on above:ArrivedStart: 01-29-2025 End: 48-12-7912Otpcufhh Vfwueni2401/29/2025 10:30 AM EDT Clinical Support [facility] [address] [place] [id number] Tracie Rodriguez, CCC-A [address] [facility] [place] [address] ArrivedNOMS Fran AudiologyComment on above:Arrived Start: 48-79-6605Botolljuh vaccinationInfluenza Vaccine (#1)[facility] Start: 11-51-9604Ejkqhbi [facility] Work Phone: Start: 16-62-8151JrlbnuiojUniversity Hospitals [facility]wood Medical Center Start: 98-06-3879Nitxscb [facility] Work Phone: Start: 33-45-2050Ddhiedekw for malignant neoplasm of colonOGDEN [facility] HealthcareComprehensive metabolic 2000 panel - Serum or Plasma [facility] CenterPatient EducationHigh-fiber diet [facility] Diverticulosis Discharge Instructions [facility] Hemorrhoids Discharge Inst ructions [facility] Work Phone: Patient [facility] Work Phone: [facility] Immunizations Immunization DateImmunizationNotesCare DhvuzebxDyqdjkqy85-80-9526cmbejdxcl, high dose seasonal, preservative-freeBenjamin Ball DO Work Phone: [facility]12-09-2024influenza virus vaccine, unspecified formulationMelbourne Regional Medical Center-A Work Phone: [facility] HospitalPwasrlbxph96-89-9376gtizbtvau, high dose seasonal, preservative-freeBenjamin Ball Other [place] [employer] Other 291356-60-7318Efcrsex 20Benjamin Ball Other [facility]12-19-2023influenza virus vaccine, unspecified formulationUniversity Hospitals Beachwood Medical Center 29-18-0998YDZHT Vaccine Pfizer - Documentation Purposes OnlyBenjamin Ball Other [facility]03-12-2021COVID-19 Vaccine Pfizer - Documentation Purposes OnlyBenjamin Ball Other [facility]12-02-2020Seasonal, quadrivalent, recombinant, injectable influenza vaccine, preservative free Mark Enriquez Other [facility]11-19-2019Influenza, injectable, Madin Liliana Canine Kidney, quadrivalent with preservativeBenjamin Ball Other [place] [employer] Other 078069-15-9111Splhfukyl, injectable, Madin Liliana Canine Kidney, preservative free, quadrivalentUniversity Hospitals Beachwood Medical Center 94-55-9290ffugjgkpt, injectable, quadrivalent, preservative freeBenjamin Ball Other [facility] Payers DatePayer CategoryPayerPolicy [id number] (Managed Care)[employer] [id number]-gkg [id number] Cross Blue [id number] [id number] [id number] Social History DateTypeDetailFacilityStart: 14-40-3332Qfk Assigned At [facility] [employer] Other Start: 40-23-6086Drd Assigned At [facility] Centertart: 08-31-2023 End: 76-86-1443Svhrxlf smoking status NHISEx-smoker (finding)[place] ClinicexMale (finding)[facility] Medical CenterTobacco smoking status NHISTobacco smoking consumption unknownNOMS HealthcareStart: 1955 Sex assigned at birthNot on fileNOMS HealthcareStart: 74-96-3615EueGnblLRTL HealthcareHistory of tobacco useCurrent smokerNOMS HealthcareHistory of tobacco useCigarette SmokerNOMS HealthcareStart: 55-56-8515Hkcmnit use and exposure Smokeless tobacco non-userNOMS HealthcareStart: 96-76-7890Ldhjxfk of Social functionNOMS Healthcare Clinical Notes 09-28-2022 to 01-30-2025 Note Date & FhfvClkkHsqvdiuw17-66-4596 History of Present illness Narrative* Stephanie Wagoner MD - 01/30/2025 1:40 PM EDT Subjective Patient ID: Ozzy Laguna is a 69 y.o. male who presents for Ear Problem (Eustachian tube disorderRT ear) Pt states earlier this year he started to notice gradual onset of RT HL compared to the left. Tx with flonase. 01/29 audio shows severe right and mild left SNHL. Right speech disc 36%. Also has RT tinnitus Review of Systems All other systems reviewed and are negative. Family History[1] Active Ambulatory Problems Diagnosis Date Noted BMI 25.0-25.9,adult 04/20/2018 Candidiasis of skin 10/26/2018 Claudication 01/29/2025 Cigarette nicotine dependence in remission 01/29/2025 Annual physical exam 04/14/2017 Eustachian tube dysfunction 01/29/2025 Hypercholesterolemia 01/29/2025 Hypertension 01/29/2025 PAD (peripheral artery disease) 01/29/2025 Smoker 11/06/2019 Resolved Ambulatory Problems Diagnosis Date Noted No Resolved Ambulatory Problems Past Medical History: Diagnosis Date Ear problems Surgical History[2] Allergies[3] Medications Ordered Prior to Encounter[4] Objective Last Recorded Vitals Vitals: 01/30/25 1336 BP: 106/63 Pulse: 69 ENT Physical Exam Constitutional Appearance: patient appears well-developed and well-nourished, Head and Face Appearance: head appears normal and face appears atraumatic; Ear Ear comments: Venkatesh ears normal Nose External Nose: nares patent bilaterally; external nose normal; Internal Nose: nasal mucosa normal; Oral Cavity/Oropharynx Lips: normal; Teeth: normal; Gums: gingiva normal; Tongue: normal; Oral mucosa: normal; Hard palate: normal; Neck Neck: neck normal; neck palpation normal; Thyroid: thyroid normal; Respiratory Inspection: breathing unlabored; normal breathing rate; Auscultation: breath sounds are clear; Cardiovascular Inspection: extremities are warm and well perfused; no peripheral edema present; Auscultation: regular rate and rhythm; Assessment/Plan Diagnoses and all orders for this visit: Asymmetric SNHL (sensorineural hearing loss) Right-sided tinnitus Ear fullness, right Pt has markedly asymmetric RT SNHL, tinnitus and decreased speech discrimination very concerning for an acoustic neuroma. I will check an MRI IAC. If MRI negative I will try to tx for cochlear hydrops. We will also discuss hearing rehab [1] Family History Problem Relation Name Age of Onset Kidney disease Mother [2] Past Surgical History: Procedure Laterality Date OTHER SURGICAL HISTORY nose surgery [3] No Known Allergies [4] Current Outpatient Medications on File Prior to Visit Medication Sig Dispense Refill aspirin 81 MG EC tablet Take 81 mg by mouth Daily atorvastatin (Lipitor) 20 MG tablet Take 20 mg by mouth Daily clopidogrel (Plavix) 75 MG tablet Take 75 mg by mouth Daily lisinopril 20 MG tablet Take 20 mg by mouth Daily No current facility-administered medications on file prior to visit. documented in this encounterColumbia Regional HospitalHljvrkfwpg61-37-6900 History of Present illness Narrative* Tracie Rodriguez CCC-A - 01/29/2025 10:30 AM EDT History: Pt was referred to ENT because of ETD. Pt noticed a decrease in hearing on the right side, onset almost a year ago. He saw his PCP and was told he may have fluid behind the eardrum. Pt tried nasal steroid and it did not work. Pt was then referred to ENT. Pt's ear feels plugged - like he has water in the ear. Sometimes he hears tinnitus in the ear. History is positive for noise exposure (pt retired in 2019.) Otoscopic Exam: Ear canal clear and TM intact AU Pure Tone Audiometry Right Ear: Mild hearing loss at 250 Hz rising to normal hearing at 500 Hz. Moderate sensorineural hearing loss above 500 Hz. Left Ear: Moderate sensorineural hearing loss at 8K Hz only Speech Audiometry Right SRT = 70 dB and word discrimination score at 85 dBHL (masked) = 64% Left SRT = 15 dB and word discrimination score at 55 dBHL = 96% Tympanometry Right Ear: Type A tympanogram Left Ear: Type A tympanogram documented in this encounterColumbia Regional HospitalApsejqoxki28-12-6585 Hospital Discharge instructionsAmbulatory Orders* Referral to ENT Time Frame: 11/08/24, Location: None Selected [facility] Work Phone: 1(816) 216-190806-23-2025 Evaluation note* Diagnosis Onset Date Resolution Status Admit Date Cigarette nicotine dependence in remissi on [facility]Nov[facility] 1:30pmEncounter for screening for malignant neoplasm of prostateacuteJune 2024 1:30pmHypercholesterolemiaacuteJune 2024 1:30pmHypertensionacuteJune 2024 1:30pmPAD (peripheral artery disease) acuteNov[facility]2024 1:30pmMedicare annual wellness visit, initialnoneactiveNovant Health Forsyth Medical Centere 2024 1:30pmScreening for colon cancernoneactiveNovant Health Forsyth Medical Centere 2024 1:30pm [facility] Work Phone: 1(983) 890-397912-19-2023 Evaluation note* Encounter Date Diagnosis Assessment Notes Treatment Notes Treatment Clinical Notes Mar, Pure hypercholesterolemia (ICD-1 0 - E78.00) Instructed on diet and exercise with continued statin therapy.Discussed the beneficial effects of lowering cholesterol in reducing the risk for cerebrovascular and cardiovascular disease. Mar,rimary hypertension (ICD-10 - I10)This patient is instructed to consume a healthy, low-fat, low-salt diet. They are also encouraged to continue exercise to achieve/maintain a normal BMI. 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 Walk daily until develop pain, rest and restart. Continue primary prevention measures: ASA, Plavix, Statin therapy. Continue abstinence from tobacco products Notify office w/ any change in symptoms or appearance of feet Mar,enign prostatic hyperplasia with lower urinary tract symptoms (ICD- 10 - N40.1)Symptoms tolerable Yearly ALCON and PSA Mar,Nocturia (ICD-10 - R35.1) Mar,igarette nicotine dependence in remission (ICD-10 - F17.211)Age began 20 1ppd, quit ontinue abstinence. d/c Wellbutrin and call if desire to restart. They are aware of the hazards associated with tobacco use, including but not limited to respiratoryinfections, vascular disease and cancers. 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 Particularly I emphasized to him that if he gets a sore on his foot we should see him immediately. [employer] Other 10-06-2023 Evaluation note* Encounter Date Diagnosis Assessment Notes Treatment Notes Treatment Clinical Notes Jan, Cigarette nicotine d ependence without complication (ICD-10 - F17.210) [employer] Other 10-06-2023 Evaluation note* Encounter Date Diagnosis Assessment Notes Treatment Notes Treatment Clinical Notes Jan, Cellulitis of toe of left foot ( ICD-10 - L03.032) Take medication as directed. Complete [...] verbalized understanding and agreement with treatment plan. Jan,Onychocryptosis (ICD-10 - L60.0) [employer] Other 08-15-2023 Evaluation note* Encounter Date Diagnosis Assessment Notes Treatment Notes Treatment Clinical Notes Nov, Peripheral artery disease (ICD-1 0 - I73.9) Nov,laudication (ICD-10 - I73.9) Nov,OtherPeripheral arterial occlusive disease with vasculogenic claudication At this [...] smoking he will follow-up with Dr. Enriquez. [employer] Other 07-26-2023 Evaluation note* Encounter Date Diagnosis Assessment Notes Treatment Notes Treatment Clinical Notes Oct, PAD (peripheral artery disease) (ICD-10 - I73.9) We reviewed patient noninvasive arterial studies from the [facility] which indicate severe PAD on the left, and moderate PAD on the right. He has symptoms of short distance claudication which are lifestyle limiting for him. He is on maximal medical management with use of aspirin, Plavix, andstatin medication daily. He currently has no tissue [...] with this plan, and denies any questions. [employer] Other 06-19-2023 Evaluation note* Encounter Date Diagnosis Assessment Notes Treatment Notes Treatment Clinical Notes Sep, Pure hypercholesterolemia (ICD-1 0 - E78.00) Instructed on diet and exercise with continued statin therapy.Discussed the beneficial effects of lowering cholesterol in reducing the risk for cerebrovascular and cardiovascular disease. Sep,[facility] annual wellness visit, initial (ICD-10 - Z00.00) Personalized health [...] and exercise. Reviewed age-appropriate preventive testing recommended. Sep,rimary hypertension (ICD-10 - I10)This patient is instructed to consume a healthy, low-fat, low-salt diet. They are also encouraged to continue exercise to achieve/maintain a normal BMI. Sep,igarette nicotine dependence without complication (ICD-10 - F17.210)This patient has been encouraged to quit tobacco use immediately. They are aware of the hazards associated with tobacco use, including but not limited to respiratory infections, vascular disease and cancers. 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 ASA and Statin therapy Walk daily Check Segmental Pressure Sep,High risk medication use (ICD-10 - Z79.899) [employer] Other 06-19-2023 Evaluation note* Encounter Date Diagnosis Assessment Notes Treatment Notes Treatment Clinical Notes Sep, Primary hypertension (ICD-10 - I 10) [employer] Other Evaluation noteNo InformationNort [employer] Other Evaluation noteNo assessment information available [facility] Work Phone: Evaluation note* Diagnosis Onset Date Resolution Status Claudication acuteFormer smokeracutePAD (peripheral artery disease)acute [facility] Work Phone: Evaluation note* Diagnosis Asymmetrical sensorineural hearing loss- Primary Sensorineural hearing loss, asymmetrical Plugged feeling in ear, right documented in this encounter [facility] HealthcareEvaluation note* Diagnosis Asymmetric SNHL (sensorineural hearing loss)- Primary Sensorineural hearing loss, asymmetrical Right-sided tinnitus Unspecified tinnitus Ear fullness, right documented in this encounter [facility]S HealthcareHistory general Narrative - Reported* Type Description Date Medical History Benign prostatic hyperplasia wit h lower urinary tract symptoms Medical HistoryPure hypercholesterolemiaMedical HistoryCigarette nicotine dependence, uncomplicatedMedical HistoryEssential hypertensionSurgical History TonsillectomySurgical HistoryNasal septum repairSurgical YzdzeejXlowlgjtdso9035 Surgical HistoryInguinal hernia [id number] Historysee surgical history [employer] Other History general Narrative - ReportedNort RentFeeder Other History general Narrative - Reported* Type Description Date Medical History Benign prostatic hyperplasia wit h lower urinary tract symptoms Medical HistoryPure hypercholesterolemiaMedical HistoryCigarette nicotine dependence, uncomplicatedMedical HistoryEssential hypertensionMedical History[ ] Surgical HistoryTonsillectomySurgical HistoryNasal septum repairSurgical History [id number] HistoryInguinal hernia [id number] History[ ] Hospitalization Historysee surgical history [employer] Other Hospital Discharge instructions Additional Instructions DISCHARGE [...] Follow up with PCP. - Office number [phone].[facility] Work Phone: Summary Purpose Family History No Family History Records Found Relationship Condition Age at Onset Recorded Date/T tuan brother Diabetes mellitus Unknown Not SpecifiedHeart diseaseUnknown Relationship Condition Age at Onset Recorded Date/T tuan brother Diabetes mellitus Unknown motherHeart diseaseUnknown Advance Directives No Advanced Directives Records Found Advance Directive Response Recorded Date/ Time Advance Directives No November 13 12:04pm Chief Complaint and Reason for Visit [...] content) No Status Records FoundNo Status Records FoundNo Status Records Found INFORMATION SOURCE (unrecogn ized section and content) DATE CREATED AUTHOR 02/26/2022 [facility] DATE CREATED AUTHOR 'S ORGANIZ ATION 11/18/2024 [facility] DATE CREATED AUTHOR AUTHOR'S ORGANIZ ATION 01/31/2025 [facility] EPIC REASON FOR VISIT (unrecogniz ed section and content) ReasonCommentsEar ProblemEustachian tube disorder RT ear Care Teams (unrecognized sec tion and content) Team Status: Active Member Role Status Dates Mark Enriquez DO Primary Care Provider Active Team Status: Inactive Member Role Status Dates Temi Vazquez WAITER/WAITRESS BAR-C Attending Provider Active Shakira Castillo Care ProviderActive Team Status: Inactive Member Role Status Dates Mark Enriquez DO Primary Care Provider Active Start: August 31, 2023 End: August 31, 2023Ros Donnelly ProviderActiveStart: August 31, 2023 End: August 31, 2023 Team Status: Inactive Member Role Status Dates Mark Enriquez DO Primary Care Provider Active Start: October 02, 2024 End: October 02enamber Enriquez DOAttporsha ProviderActiveStart: October 02, 2024 End: October 02, 2024 Team Status: Active Member Role Status Dates Mark Enriquez DO Primary Care Provider Active Start: November 06, 2024 Thi Carreonending ProviderActiveStart: November 06, 2024 Julius Cullen MDOther ProviderActiveStart: November 06, 2024 Team Status: Active Member Role Status Dates Mark Enriquez DO Primary Care Provider Active Start: November 08, 2024 Mark Enriquez DOAttporsha ProviderActiveStart: November 08, 2024 Team MemberRelationshipSpecialtyStart DateEnd Date Mark Enriquez DO [address] [place] [id number] PCP - GeneralInternal Pqlxzhey41/20/25Team MemberRelationshipSpecialtyStart Date End Date Mark Enriquez DO [address] [place] [address] PCP - GeneralInternal Tgqjoclq69/20/25Team MemberRelationshipSpecialtyStart Date End Date Mark Enriquez DO [address] [place] [id number] PCP - GeneralInternal Bwtewgzc46/20/25Team MemberRelationshipSpecialtyStart Date End Date Mark Enriquez DO [address] [facility] [place] [id number] PCP - GeneralInternal Gqeejfdr90/20/25 Goals (unrecognized section and content) Goals may [...] BE BASED ON THE PRIMARY CLINICAL RECORDS. [employer] [facility]. provides no warranty or guarantee of the accuracy or completeness of information in this document.
--- NOTE | 2025-02-20 14:29 | MR_ITS ---
[facility] [place] [id number] Patient Name: THOMAS DELGADO MRN: [id number] date: 1955 Sex: M Assigned Patient Location: LAB Current Patient Location: LAB Accession/Order Number: [id number] Exam Date: 02/20/2025 15:00 Report Date: 02/20/2025 19:04 At the request of: RO WAGONER MD Procedure: MR head/brain wo/w con MRI BRAIN/IAC's PERFORMED WITHOUT WITH CONTRAST INDICATION: Sensorineural hearing loss COMPARISON: None FINDINGS: No restricted diffusion. Ventricles and sulci normal in size and configuration for the patient's age. No shift midline structures. Basal cisterns are patent. Mild periventricular subcortical T2 prolongation identified suggest of chronic small vessel ischemic disease. Major intracranial arterial vascular flow voids preserved. Mild paranasal sinus mucosal thickening. Mild ethmoid sinus mucosal thickening. Dedicated imaging of the IACs demonstrate maintenance of the normal intrinsic T2 signal within the inner ear structures. The cisternal and canalicular segments of the 7th and 8th cranial nerves unremarkable. No intrinsic T1 shortening involving the inner ear structures. No abnormal retrocochlear enhancement. No abnormal enhancements elsewhere within the brain. MR/MR head/brain wo/w con IMPRESSION: Negative for enhancing right retrocochlear mass. Mild chronic small vessel disease. Negative acute intracranial process by MRI. Impression dictated by: Ernesto Martinez M.D. 02/20/2025 7:04 PM Dictation Location: [place] [address] Electronically authenticated by: [id number] Y Date: 02/20/2025 19:04
[2025-02-20 14:43] LABS: Estimated GFR (African America >60 (>=60 mL/min/1.73m^2); Estimated GFR (Non-African Ame >60 (>=60 mL/min/1.73m^2)
== END 2025-02-20 14:17 | disposition home or self-care (01) ==
LOC: LAB 14:17
PROVIDERS: Pathology Anatomic Pathology & Clinical Pathology; Family Provider Internal Medicine; Visit Provider Otolaryngology
DX: H90.3 Sensorineural hearing loss, bilateral (principal); H93.11 Tinnitus, right ear; H93.8X1 Other specified disorders of right ear
CPT/HCPCS: 36415; 70553; 82565; A9575